=== PATIENT | female | born 1950 | race Caucasian/White ===

== ENCOUNTER → 2017-04-24 | Outpatient (CLI) | payer MEDICARE ==
[~2017-04-24] MED LIST: REGADENOSON 0.4 MG/5 ML SYRINGE IV ONE
--- NOTE | 2017-04-24 11:40 | NM ---
EXAMINATION TYPE: NM stress Lexiscan cardiolite DATE OF EXAM: 04/24/2017 COMPARISON: NONE HISTORY: Chest pain TECHNIQUE: After the intravenous administration of 10.15 mCi Tc 99m Sestamibi - Cardiolite resting S PECT images acquired 45 minutes post injection. The patient received 0.4mg Lexiscan, 27 mCi Tc 99m Sestamibi - Stress images obtained 30 minutes post injection FINDINGS: There is good uptake of radiotracer by the left ventricle without fixed defect. There is no convincing inducible ischemic change. Wall motion is calculated by the computer at 38%. IMPRESSION: 1. NO EVIDENCE OF INDUCIBLE ISCHEMIC CHANGE AT THIS TIME. 2. COMPUTER-GENERATED EJECTION FRACTION OF ONLY 38%.
--- NOTE | 2017-04-24 11:41 | ECHOF ---
Referral Reason:R07.9 chest pain MEASUREMENTS -------- HEIGHT: 165.1 cm WEIGHT: 63.5 kg BP: RVIDd: 2.4 cm (< 3.3) IVSd: 1.2 cm (0.6 - 1.1) LVIDd: 4.1 cm (3.9 - 5.3) LVPWd: 1.1 cm (0.6 - 1.1) IVSs: 1.5 cm LVIDs: 3.6 cm LVPWs: 1.2 cm LA Diam: 3.7 cm (2.7 - 3.8) LAESV Index (A-L): 30.99 ml/m Ao Diam: 3.1 cm (2.0 - 3.7) AV Cusp: 2.0 cm (1.5 - 2.6) LA Diam: 4.1 cm (2.7 - 3.8) MV EXCURSION: 18.395 mm (> 18.000) MV EF SLOPE: 72 mm/s (70 - 150) EPSS: 0.3 cm MV E Gabe: 0.74 m/s MV DecT: 232 ms MV A Gabe: 0.92 m/s MV E/A Ratio: 0.81 RAP: 5.00 mmHg RVSP: 31.31 mmHg FINDINGS -------- Sinus rhythm. This was a technically adequate study. There is borderline concentric left ventricular hypertrophy. Overall left ventricular systolic function is normal with, an EF between 55 - 60 %. The right ventricle is normal in size. The right atrial size is normal. There is mild aortic valve sclerosis. There is no evidence of aortic regurgitation. Mild mitral annular calcification present. Mild mitral regurgitation is present. Mild tricuspid regurgitation present. There is no evidence of pulmonary hypertension. The right ventricular systolic pressure, as measured by Doppler, is 31.31mmHg. There is no pulmonic regurgitation present. The aortic root size is normal. Echo free space may represent effusion or a pericardial fat pad. CONCLUSIONS -------- 1. There is borderline concentric left ventricular hypertrophy. 2. Overall left ventricular systolic function is normal with, an EF between 55 - 60 %. 3. There is mild aortic valve sclerosis. 4. Mild mitral annular calcification present. 5. Mild mitral regurgitation is present. 6. Mild tricuspid regurgitation present. 7. There is no evidence of pulmonary hypertension. 8. The right ventricular systolic pressure, as measured by Doppler, is 31.31mmHg. 9. Echo free space may represent effusion or a pericardial fat pad. DIAGNOSTIC RADIOLOGIST: Guillermina Burgess RDCS
--- NOTE | 2017-04-24 12:24 | P.STRESS ---
- Stress Test Note Stress Test Results/Findings: Exam Performed: NM stress lexiscan cardiolite Exam Date: 04/24/17 Reason for Exam: Chest pain, short of breath Height: 5 ft 5 in Weight: 104.326 kg Protocol: Dee Stage: N/A Duration of Exercise: N/A Resting Heart Rate: 67 Resting Blood Pressure: 137/83 Maximum Achieved Heart Rate: 93 Maximum Achieved Blood Pressure: 173/70 85% PMHR: 128 100% PMHR: 151 METS: N/A Technologist Comment: Stress Test Results/Findings: Patient was given Lexiscan injection what appeared to 15 seconds. EKG did not show any ischemic changes. Results of the nuclear study will follow.
== END | disposition home or self-care (01) ==
LOC: RADNMMAIN 09:01
PROVIDERS: ATTEND Family Medicine
DX: I08.1 Rheumatic disorders of both mitral and tricuspid valves (principal); Z88.2 Allergy status to sulfonamides; Z88.5 Allergy status to narcotic agent; Z88.6 Allergy status to analgesic agent
CPT/HCPCS: 93017; 93306; 78452; A9500; J2785

== ENCOUNTER → 2018-09-22 | Outpatient (CLI) | payer MEDICARE ==
--- NOTE | 2018-09-23 14:52 | MM ---
Reason for exam: screening (asymptomatic). History: Patient is postmenopausal. Physical Findings: A clinical breast exam by your physician is recommended on an annual basis and results should be correlated with mammographic findings. MG 3D Screening Mammo W/Cad Bilateral CC and MLO view(s) were taken. No prior studies available for comparison. Benign calcifications. Focal asymmetry upper outer right breast 13cm from nipple. ASSESSMENT: Incomplete: need additional imaging evaluation, BI-RAD 0 RECOMMENDATION: Special view mammogram of the right breast. If lesion persists on supplemental views, image directed ultrasound is recommended. [facility] will attempt to contact patient to return for supplemental views and ultrasound if indicated.
== END ==
LOC: RADMAMWWP 10:12
PROVIDERS: ATTEND Family Medicine
DX: Z12.31 Encounter for screening mammogram for malignant neoplasm of breast (principal); Z78.0 Asymptomatic menopausal state
CPT/HCPCS: 77063; 77067

== ENCOUNTER → 2018-10-14 | Outpatient (CLI) | payer MEDICARE ==
--- NOTE | 2018-10-18 18:30 | MM ---
Reason for exam: additional evaluation requested from abnormal screening. Last mammogram was performed 1 month ago. History: Patient is postmenopausal. Physical Findings: Nurse did not find any significant physical abnormalities on exam. MG 3D Work Up W/Cad RT Spot compression CC, spot compression MLO, and LM view(s) were taken of the right breast. Prior study comparison: September 22, 2018, bilateral MG 3d screening mammo w/cad. There are scattered fibroglandular densities. The right breast upper outer quadrant focal asymmetry appears as fibroglandular tissue on addition views such as 3D compression views. A 6 month follow up is recommended as no priors are available for comparison. These results were verbally communicated with the patient and result sheet given to the patient on 10/14/18. ASSESSMENT: Probably benign, BI-RAD 3 RECOMMENDATION: Follow-up diagnostic mammogram of the right breast in 6 months.
== END | disposition home or self-care (01) ==
LOC: RADMAMWWP 10:11
PROVIDERS: ATTEND Family Medicine
DX: R92.8 Other abnormal and inconclusive findings on diagnostic imaging of breast (principal)
CPT/HCPCS: 77065; G0279; 77061

== ENCOUNTER 2020-03-22 12:05 | Emergency (ER) | payer MEDICARE ==
[2020-03-22 12:15] VITALS: RESP 18
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
--- NOTE | 2020-03-22 13:28 | XR ---
EXAMINATION TYPE: XR chest 1V portable DATE OF EXAM: 03/22/2020 COMPARISON: NONE HISTORY: Altered mental status and weakness. TECHNIQUE: Single AP portable frontal view of the chest is obtained. FINDINGS: There is some chronic parenchymal change without focal air space opacity, pleural effusion , or pneumothorax seen. The cardiac silhouette size is within normal limits. The osseous structure s are intact. IMPRESSION: No acute process.
--- NOTE | 2020-03-22 14:00 | CT ---
EXAMINATION TYPE: CT brain wo con DATE OF EXAM: 03/22/2020 HISTORY: Mental health, anxiety, confusion. CT DLP: 1099.4 mGycm. Automated Exposure Control for Dose Reduction was Utilized. TECHNIQUE: CT scan of the head is performed without contrast. COMPARISON: CT brain June 30, 2013. FINDINGS: There is no acute intracranial hemorrhage or midline shift identified. There is diffuse v entricular and sulcal prominence consistent with diffuse age-related cerebral atrophy. Robertson-white mat ter differentiation fairly well maintained. The globes are intact and the visualized sinuses are selina ar. IMPRESSION: No acute intracranial hemorrhage or midline shift. There is mild diffuse age-related ce rebral atrophy now identified.
[2020-03-22 14:13] LABS: Basophils # (A) 0.1 k/uL (0-0.2); Basophils % (A) 1 %; Eosinophils # (A) 0.3 k/uL (0-0.7); Eosinophils % (A) 4 %; HCT 44.9 % (34.0-46.0); HGB 14.6 gm/dL (11.4-16.0); Lymphocytes # (A) 1.5 k/uL (1.0-4.8); Lymphocytes % (A) 21 %; MCHC 32.6 g/dL (31.0-37.0); Monocytes # (A) 0.4 k/uL (0-1.0); Monocytes % (A) 5 %; Neutrophils # (A) 4.9 k/uL (1.3-7.7); Neutrophils % (A) 67 %; Platelet Count 333 k/uL (150-450); RBC 4.89 m/uL (3.80-5.40); RDW 13.4 % (11.5-15.5); WBC 7.3 k/uL (3.8-10.6)
[2020-03-22 14:22] LABS: African American GFR (CKD) >90 (>60 ml/min/1.73 sqM); Anion Gap 8 mmol/L; Blood Urea Nitrogen 25 mg/dL (7-17); Calcium 9.7 mg/dL (8.4-10.2); Carbon Dioxide 28 mmol/L (22-30); Chloride 101 mmol/L (98-107); Glucose 111 mg/dL (74-99); Non-African American GFR(CKD) 86 (>60 ml/min/1.73 sqM); Sodium 137 mmol/L (137-145)
[2020-03-22 14:30] LABS: Amphetamine Screen,Urine Not Detected (NotDetected); Barbiturate Screen,Urine Not Detected (NotDetected); Benzodiazepines Screen,Urine Not Detected (NotDetected); Cocaine Screen,Urine Not Detected (NotDetected); Methadone Screen, Urine Not Detected (NotDetected); Opiate Screen,Urine Not Detected (NotDetected); Oxycodone Screen, Urine Not Detected (NotDetected); Phencyclidine Screen,Urine Not Detected (NotDetected); Tricyclic Antidepressant,Urine Not Detected (NotDetected); Urn Cannabinoid Scrn Detected (NotDetected)
[2020-03-22 14:58] LABS: Potassium 5.1 mmol/L (3.5-5.1)
[2020-03-22] MEDS ORDERED: CALCIUM CARBONATE 500 MG CHEWABLE PO PRN (18:35)
[2020-03-23] MEDS ORDERED: cloNIDine HCL 0.2 MG TAB PO STA (01:02)
[2020-03-23] MEDS ORDERED: IBUPROFEN 600 MG TAB PO STA (01:02)
[2020-03-23] MEDS ORDERED: LABETALOL 5 MG/ML VIAL MDV IVP STA (01:16)
[2020-03-23 07:05] VITALS: TEMP 98.2
[2020-03-23 09:05] VITALS: BP 139/82; PULSE 70
== END 2020-03-23 09:09 ==
LOC: EC 12:05
DX: R44.0 Auditory hallucinations (principal); R41.82 Altered mental status, unspecified; R79.89 Other specified abnormal findings of blood chemistry; E07.9 Disorder of thyroid, unspecified; Z79.890 Hormone replacement therapy; Z88.6 Allergy status to analgesic agent; Z88.5 Allergy status to narcotic agent
CPT/HCPCS: 36415; 70450; 71045; 80048; 80306; 82075; 84443; 85025; 93005; 96374; 99285

== ENCOUNTER → 2020-04-12 | Outpatient (CLI) | payer MEDICARE, OTHER ==
--- NOTE | 2020-04-12 16:08 | XR ---
Bilateral hands and bilateral wrists HISTORY: Pain 3 views of each hand, 4 views of each wrist are submitted. Joint space loss is present radiocarpal joints. There is extensive geode formation, lucencies within the carpal bones noted, there is erosion present at the margin of the scaphoid trapezium joint of the right wrist. Soft tissue swelling is present. Suspect some widening of the scapholunate distance jax aterally. Small ossific densities are present at the level of the distal ulna of the left wrist. Join t space loss is present at the third metacarpophalangeal joint of the left hand, interphalangeal join ts. Bone mineralization is maintained. A triangle fibrocartilage calcification noted. 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
== END | disposition home or self-care (01) ==
LOC: RADXRMAIN 14:55
PROVIDERS: ATTEND Family Medicine
DX: M79.641 Pain in right hand (principal); M79.642 Pain in left hand; M25.539 Pain in unspecified wrist

== ENCOUNTER 2020-04-17 12:47 | Inpatient (IN) | payer MEDICARE ==
--- NOTE | 2020-04-17 13:45 | ED ---
General Adult HPI - General Chief complaint: Psychiatric Symptoms Stated complaint: Psych Time Seen by Provider: 04/17/20 12:49 Source: patient, police, EMS, RN notes reviewed, old records reviewed Mode of arrival: EMS Limitations: physical limitation - History of Present Illness Initial comments: 70 yo female presenting for "ordered psychiatric evaluation. Patient has been petitioned and was brought in in police custody. She has no complaints. She is tearful on exam stating that she does not want to be way from her dogs. She denies suicidal or homicidal ideation. At the time of initial evaluation the petitioned is not available and is being faxed over from the court system. - Related Data Home Medications Medication Instructions Recorded Confirmed Levothyroxine Sodium [Synthroid] 100 mcg PO DAILY 03/22/20 04/17/20 DULoxetine HCL [Cymbalta] 60 mg PO BID 04/17/20 04/17/20 Melatonin 5 mg PO HS 04/17/20 04/17/20 risperiDONE [RisperDAL] 2 mg PO DAILY 04/17/20 04/17/20 Allergies Allergy/AdvReac Type Severity Reaction Status Date / Time aspirin AdvReac Nausea & Verified 04/17/20 14:09 Vomiting codeine AdvReac Vomiting Verified 04/17/20 14:09 Review of Systems ROS Statement: Those systems with pertinent positive or pertinent negative responses have been documented in the HPI. ROS Other: All systems not noted in ROS Statement are negative. Past Medical History Past Medical History: COPD, Thyroid Disorder Additional Past Medical History / Comment(s): pt poor historian History of Any Multi-Drug Resistant Organisms: None Reported Additional Past Surgical History / Comment(s): thyroid, carpal tunnel Past Psychological History: Unable to Obtain Smoking Status: Never smoker Past Alcohol Use History: None Reported Past Drug Use History: None Reported General Exam Limitations: physical limitation General appearance: alert, anxious Head exam: Present: atraumatic, normocephalic Eye exam: Present: normal appearance, PERRL ENT exam: Present: normal exam Neck exam: Present: normal inspection Respiratory exam: Present: normal lung sounds bilaterally. Absent: respiratory distress, wheezes Cardiovascular Exam: Present: regular rate, normal rhythm GI/Abdominal exam: Present: soft. Absent: distended, tenderness Extremities exam: Present: normal inspection, full ROM Neurological exam: Present: alert. Absent: motor sensory deficit Psychiatric exam: Present: depressed, anxious. Absent: suicidal ideation Skin exam: Present: warm, dry, intact Course Vital Signs 04/17/20 04/17/20 13:04 14:00 Temperature 98.0 F Pulse Rate 79 67 Respiratory 18 16 Rate Blood Pressure 179/110 166/99 O2 Sat by Pulse 98 99 Oximetry - Reevaluation(s) Reevaluation #1: 04/17/20 13:45 Patient medically cleared and EPS will evaluate. Medical Decision Making - Medical Decision Making 70-year-old female with Court ordered psychiatric evaluation. Patient is paranoid, unable to understand her need for treatment, unable to handle activities of daily living. She has been evaluated by EPS and will require inpatient psychiatric evaluation and treatment. I did complete a clinical certification on this patient. She will be admitted to this institution. - Lab Data Lab Results 04/17/20 Range/Units 13:54 Urine Opiates Screen Not Detected (NotDetected) Ur Oxycodone Screen Not Detected (NotDetected) Urine Methadone Screen Not Detected (NotDetected) Ur Propoxyphene Screen Not Detected (NotDetected) Ur Barbiturates Screen Not Detected (NotDetected) U Tricyclic Antidepress Not Detected (NotDetected) Ur Phencyclidine Scrn Not Detected (NotDetected) Ur Amphetamines Screen Not Detected (NotDetected) U Methamphetamines Scrn Not Detected (NotDetected) U Benzodiazepines Scrn Not Detected (NotDetected) Urine Cocaine Screen Not Detected (NotDetected) U Marijuana (THC) Screen Detected H (NotDetected) Disposition Clinical Impression: Psychosis, Acute psychosis Dis[facility] Condition: Stable Is patient prescribed a controlled substance at d/c from ED?: No Referrals: Rajat Warner MD [Primary Care Provider] - 1-2 days Decision to Admit Reason: Admit from EC Decision Date: 04/17/20 Decision Time: 15:16
[2020-04-17 14:40] LABS: Amphetamine Screen,Urine Not Detected (NotDetected); Barbiturate Screen,Urine Not Detected (NotDetected); Benzodiazepines Screen,Urine Not Detected (NotDetected); Cocaine Screen,Urine Not Detected (NotDetected); Methadone Screen, Urine Not Detected (NotDetected); Opiate Screen,Urine Not Detected (NotDetected); Oxycodone Screen, Urine Not Detected (NotDetected); Phencyclidine Screen,Urine Not Detected (NotDetected); Tricyclic Antidepressant,Urine Not Detected (NotDetected); Urn Cannabinoid Scrn Detected (NotDetected)
[2020-04-17] MEDS ORDERED: MAGNESIUM HYDROXIDE 2,400 MG/10 ML CUP PO PRN (16:06)
[2020-04-17] MEDS ORDERED: ZIPRASIDONE 20 MG VIAL IM PRN (16:06)
[2020-04-17] MEDS: ACETAMINOPHEN TAB 325 MG TAB PO PRN (18:58)
[2020-04-17] MEDS: risperiDONE 1 MG TAB PO SCH (20:52)
--- NOTE | 2020-04-17 21:49 | P.CONS ---
History of Present Illness - Reason for Consult Consult date: 04/17/20 - History of Present Illness Patient is a 70-year-old female with a PMH of hypothyroidism who was brought into the emergency room and please custody due to a court order for psychiatric evaluation. The patient was thereby admitted to the mental health unit where she was seen and evaluated earlier today. The patient was tearful during the examination and states that she feels she is here because she was yelling at someone on the phone and that no one is able to understand her. She was also very concerned about the well-being of her dogs who are currently being cared for by animal protection. She otherwise denied any active complaints. Denied chest pain, shortness of breath, nausea, vomiting or diaphoresis. Denied cough, fever, chills, abdominal pain, or dizziness. Review of Systems Pertinent positives and negatives as discussed in HPI, a complete review of systems was performed and all other systems are negative. Past Medical History Past Medical History: COPD, Thyroid Disorder Additional Past Medical History / Comment(s): pt poor historian History of Any Multi-Drug Resistant Organisms: None Reported Additional Past Surgical History / Comment(s): thyroid, carpal tunnel Past Psychological History: Unable to Obtain Smoking Status: Never smoker Past Alcohol Use History: None Reported Past Drug Use History: None Reported Medications and Allergies Home Medications Medication Instructions Recorded Confirmed Type Levothyroxine Sodium [Synthroid] 100 mcg PO DAILY 03/22/20 04/17/20 History DULoxetine HCL [Cymbalta] 60 mg PO BID 04/17/20 04/17/20 History Melatonin 5 mg PO HS 04/17/20 04/17/20 History risperiDONE [RisperDAL] 2 mg PO DAILY 04/17/20 04/17/20 History Allergies Allergy/AdvReac Type Severity Reaction Status Date / Time aspirin AdvReac Nausea & Verified 04/17/20 14:09 Vomiting codeine AdvReac Vomiting Verified 04/17/20 14:09 Physical Exam Vitals: Vital Signs Temp Pulse Pulse Resp BP BP Pulse Ox 04/17/20 16:15 97.8 F 72 18 177/115 99 04/17/20 15:49 178/114 04/17/20 14:00 67 16 166/99 99 04/17/20 13:04 98.0 F 79 18 179/110 98 Intake and Output 07/04/17/20 04/17/20 06:59 14:59 22:59 Other: Weight 95.254 kg 97.8 kg General: non toxic, no distress, appears at stated age, obese Derm: no unusual rashes/lesions no unusual ecchymoses, warm, dry Head: atraumatic, normocephalic, symmetric Eyes: EOMI, no lid lag, anicteric sclera, pupils equal round reactive to light ENT: Nose and ears atraumatic, no thrush, no pharyngeal erythema Neck: No thyromegaly, no cervical lymphadenopathy, trachea midline, supple Mouth: no lip lesion, mucus membranes moist Cardiovascular: S1S2 reg, no murmur, positive posterior tibial pulse bilateral, no edema, capillary refill less than 2 seconds Lungs: CTA bilateral, no rhonchi, no rales , no accessory muscle use Abdominal: soft, nontender to palpation, no guarding, no appreciable organomegaly, normal bowel sounds Ext: no gross muscle atrophy, muscle strength 5 out of 5 in all 4 extremities grossly, no contractures, Neuro: CN II-XI grossly intact, light touch intact all 4 extremities, finger to nose within normal limits, Psych: Alert, oriented, appropriate affect Results Labs: Abnormal Lab Results - Last 24 Hours (Table) 04/17/20 Range/Units 13:54 U Marijuana (THC) Screen Detected H (NotDetected) Assessment and Plan Plan: Hypothyroidism -C/w home levothyroxine dose Psychosis -As per psychiatry Thank you for allowing us to participate in the care of this patient. We will follow peripherally. Do not hesitate to contact us with questions. Someone can be reached from the [facility] hospitalist group at all hours of the day at [phone].
[2020-04-18] MEDS: ACETAMINOPHEN TAB 325 MG TAB PO PRN ×3 (03:16→20:23)
[2020-04-18] MEDS: LEVOTHYROXINE 100 MCG TAB PO SCH (06:30)
[2020-04-18 08:59] LABS: Basophils # (A) 0.1 k/uL (0-0.2); Basophils % (A) 1 %; Eosinophils # (A) 0.2 k/uL (0-0.7); Eosinophils % (A) 4 %; HGB 13.4 gm/dL (11.4-16.0); Lymphocytes # (A) 1.6 k/uL (1.0-4.8); Lymphocytes % (A) 30 %; MCH 30.4 pg (25.0-35.0); Mean Platelet Volume 7.6; Monocytes # (A) 0.3 k/uL (0-1.0); Monocytes % (A) 6 %; Neutrophils # (A) 3.2 k/uL (1.3-7.7); Neutrophils % (A) 59 %; Platelet Count 287 k/uL (150-450); RBC 4.42 m/uL (3.80-5.40); RDW 13.5 % (11.5-15.5); WBC 5.4 k/uL (3.8-10.6)
[2020-04-18] MEDS ORDERED: DULoxetine HCL 30 MG CAPSULE.DR PO SCH (09:00)
[2020-04-18 09:12] LABS: ALT 15 U/L (4-34); AST 22 U/L (14-36); African American GFR (CKD) >90 (>60 ml/min/1.73 sqM); Alkaline Phosphatase 67 U/L (38-126); Anion Gap 7 mmol/L; Blood Urea Nitrogen 20 mg/dL (7-17); Calcium 9.6 mg/dL (8.4-10.2); Carbon Dioxide 28 mmol/L (22-30); Chloride 105 mmol/L (98-107); Cholesterol 229 mg/dL (<200); Glucose 98 mg/dL (74-99); HDL Cholesterol 62 mg/dL (40-60); LDL Cholesterol,Calculated 143 mg/dL (0-99); Non-African American GFR(CKD) 80 (>60 ml/min/1.73 sqM); Potassium 4.7 mmol/L (3.5-5.1); Sodium 140 mmol/L (137-145); Total Bilirubin 0.5 mg/dL (0.2-1.3); Total Protein 6.7 g/dL (6.3-8.2); Triglycerides 119 mg/dL (<150)
--- NOTE | 2020-04-18 12:19 | P.HP ---
Psychiatric H&P - . H&P Date: 04/18/20 History & Physical: Allergies Allergy/AdvReac Type Severity Reaction Status Date / Time aspirin AdvReac Nausea & Verified 04/17/20 14:09 Vomiting codeine AdvReac Vomiting Verified 04/17/20 14:09 Vital Signs Temp 98.3 F 04/18/20 03:33 Pulse 87 04/18/20 03:33 Resp 18 04/18/20 03:33 BP 152/79 04/18/20 03:33 Pulse Ox 99 04/17/20 16:15 Intake & Output 04/17/20 04/18/20 04/18/20 18:59 06:59 18:59 Weight 97.8 kg Laboratory Last Values WBC 5.4 k/uL (3.8-10.6) 04/18/20 07:51 RBC 4.42 m/uL (3.80-5.40) 04/18/20 07:51 Hgb 13.4 gm/dL (11.4-16.0) 04/18/20 07:51 Hct 42.0 % (34.0-46.0) 04/18/20 07:51 MCV 95.0 fL (80.0-100.0) 04/18/20 07:51 MCH 30.4 pg (25.0-35.0) 04/18/20 07:51 MCHC 32.0 g/dL (31.0-37.0) 04/18/20 07:51 RDW 13.5 % (11.5-15.5) 04/18/20 07:51 Plt Count 287 k/uL (150-450) 04/18/20 07:51 Neutrophils % 59 % 04/18/20 07:51 Lymphocytes % 30 % 04/18/20 07:51 Monocytes % 6 % 04/18/20 07:51 Eosinophils % 4 % 04/18/20 07:51 Basophils % 1 % 04/18/20 07:51 Neutrophils # 3.2 k/uL (1.3-7.7) 04/18/20 07:51 Lymphocytes # 1.6 k/uL (1.0-4.8) 04/18/20 07:51 Monocytes # 0.3 k/uL (0-1.0) 04/18/20 07:51 Eosinophils # 0.2 k/uL (0-0.7) 04/18/20 07:51 Basophils # 0.1 k/uL (0-0.2) 04/18/20 07:51 Sodium 140 mmol/L (137-145) 04/18/20 07:51 Potassium 4.7 mmol/L (3.5-5.1) 04/18/20 07:51 Chloride 105 mmol/L (98-107) 04/18/20 07:51 Carbon Dioxide 28 mmol/L (22-30) 04/18/20 07:51 Anion Gap 7 mmol/L 04/18/20 07:51 BUN 20 mg/dL (7-17) H 04/18/20 07:51 Creatinine 0.75 mg/dL (0.52-1.04) 04/18/20 07:51 Est GFR (CKD-EPI)AfAm >90 (>60 ml/min/1.73 sqM) 04/18/20 07:51 Est GFR (CKD-EPI)NonAf 80 (>60 ml/min/1.73 sqM) 04/18/20 07:51 Glucose 98 mg/dL (74-99) 04/18/20 07:51 Calcium 9.6 mg/dL (8.4-10.2) 04/18/20 07:51 Total Bilirubin 0.5 mg/dL (0.2-1.3) 04/18/20 07:51 AST 22 U/L (14-36) 04/18/20 07:51 ALT 15 U/L (4-34) 04/18/20 07:51 Alkaline Phosphatase 67 U/L (38-126) 04/18/20 07:51 Total Protein 6.7 g/dL (6.3-8.2) 04/18/20 07:51 Albumin 4.0 g/dL (3.5-5.0) 04/18/20 07:51 Triglycerides 119 mg/dL (<150) 04/18/20 07:51 Cholesterol 229 mg/dL (<200) H 04/18/20 07:51 LDL Cholesterol, Calc 143 mg/dL (0-99) H 04/18/20 07:51 HDL Cholesterol 62 mg/dL (40-60) H 04/18/20 07:51 TSH 24.200 mIU/L (0.465-4.680) H 04/18/20 07:51 Urine Opiates Screen Not Detected (NotDetected) 04/17/20 13:54 Ur Oxycodone Screen Not Detected (NotDetected) 04/17/20 13:54 Urine Methadone Screen Not Detected (NotDetected) 04/17/20 13:54 Ur Propoxyphene Screen Not Detected (NotDetected) 04/17/20 13:54 Ur Barbiturates Screen Not Detected (NotDetected) 04/17/20 13:54 U Tricyclic Antidepress Not Detected (NotDetected) 04/17/20 13:54 Ur Phencyclidine Scrn Not Detected (NotDetected) 04/17/20 13:54 Ur Amphetamines Screen Not Detected (NotDetected) 04/17/20 13:54 U Methamphetamines Scrn Not Detected (NotDetected) 04/17/20 13:54 U Benzodiazepines Scrn Not Detected (NotDetected) 04/17/20 13:54 Urine Cocaine Screen Not Detected (NotDetected) 04/17/20 13:54 U Marijuana (THC) Screen Detected (NotDetected) H 04/17/20 13:54 04/18/20 12:10 IDENTIFYING DATA: Patient is a 70-year-old female who currently lives alone in a house is and has 2 sons and 1 daughter. HPI: Patient presented to the hospital on a pickup order by the police in custody for a psychiatric evaluation. Patient according to ER report was yelling at someone over the phone and appeared to be tearful during interview. Patient was also on a petition stating that she was acting bizarre and endorsing delusions. Patient had a urine drug screen which is positive for THC. Patient was admitted to the mental health unit and evaluated today by program writer and patient was directable however was tearful and visibly upset while speaking to program writer. She states that "I can't stop crying" and states that she feels that she is "garbage". She also endorsed some paranoia stating that she can't trust anybody. She feels that nobody is listening to her and that the "world feels like it's falling apart". She was illogical at times and was a poor historian. She spoke repeatedly about her dogs and how she misses him and continues to cry. She was rambling and had racing thoughts and was illogical. She spoke about passive suicidal thoughts as in "putting me in my dogs down or in hospice" however did not endorse any specific suicidal plans or intent. She denied any homicidal ideations intent or plan. She states that her sleep is "okay and takes melatonin. She states that she has been off her medications for 1 week as she was hospitalized in [place] over a week ago. At this time patient denies any auditory or visual hallucinations. Patient admits to using marijuana daily for "medical reasons" and denies any other recreational drug use. She denies any cigarette use. PAST PSYCHIATRIC HISTORY: Patient states that she has some form of mental illness. Patient was previously on Risperdal and Cymbalta. Veins and she was recently hospitalized at [facility] in [place] one week ago. Patient denies any psychiatric outpatient follow-up. She states that she once attempted suicide by not taking her thyroid medications. PMH: COPD and hypothyroidism ALLERGIES: as per EMR CHEMICAL DEPENDENCY HISTORY: as per HPI FAMILY PSYCHIATRIC/SUBSTANCE USE HISTORY: She states that her mother had some form of mental illness. SOCIAL HISTORY: Patient was born and [place] in [facility] [place]. She states that she is currently living alone in a house is and has 2 sons and 1 daughter. 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 She denied any legal problems at this time. MENTAL STATUS EXAM: General Appearance: Patient appears to be stated age is alert, difficult to redirect and tearful/upset. Patient appears to have poor hygiene and grooming. Behavior: Patient is seated without any agitated behavior. Tearful and upset. Speech: Patient's speech is fluent and nonpressured. Mood/Affect: Patient reports their mood is depressed, affect is congruent and tearful Suicidality/Homicidality: Patient denies having any homicidal ideation intent or plan. Patient admitted to passive suicidal thoughts however no intent or plan. Perceptions: Patient denies any visual hallucinations and denies any auditory hallucinations Though content/process: Patient has extreme forms of guilt, is illogical and disorganized at times. Memory and concentration: AOX3, grossly intact for the purposes of this session. Can spell "WORLD" backwards Judgment and insight: poor STRENGTHS/WEAKNESSES: strength is that patient is resilient. Weakness is that patient has poor judgment and is impulsive INTELLECT: average IMPRESSIONS: Schizoaffective disorder, depressive type Cannabis use disorder PLAN: -Patient is admitted under voluntary status to MHU for stabilization of psychiatric symptoms and safety. Patient signed adult voluntary form and medication consent and is placed in patient's chart. -Medications : Will start patient on Risperdal 1 mg twice a day for psychosis/mood stabilization, increase Cymbalta to 30 mg twice a day for mood/anxiety. -Geodon PRN for agitation/aggression -Patient was informed of the risks, benefits and side effects of the medication and patient verbally consented to taking the medications. Patient signed med consent form and was placed in chart. -Internal Medicine consult to perform medical evaluation and physical. patient has an elevated TSH at 24, awaiting free T4. Patient had a computed tomography scan of her head on 03/22/2020 which showed no acute changes and mild diffuse age-related cerebral atrophy. -NRT -not needed as patient does not smoke -SW on board for discharge planning. Encourage patient to participate in groups to work on coping skills.
[2020-04-18] MEDS: risperiDONE 1 MG TAB PO SCH ×2 (12:20→20:23)
[2020-04-18] MEDS: MAG HYDROX/AL HYDROX/SIMETH 30 ML CUP PO PRN (14:05)
[2020-04-18] MEDS: DULoxetine HCL 30 MG CAPSULE.DR PO SCH (20:23)
[2020-04-18] MEDS: MELATONIN 5 MG TABLET PO PRN (20:25)
[2020-04-18 21:30] LABS: Hemoglobin A1C 5.9 % (4.0-6.0)
[2020-04-19] MEDS: LEVOTHYROXINE 100 MCG TAB PO SCH (05:19)
[2020-04-19] MEDS: ACETAMINOPHEN TAB 325 MG TAB PO PRN (05:20)
[2020-04-19] MEDS: DULoxetine HCL 30 MG CAPSULE.DR PO SCH (08:52)
[2020-04-19] MEDS: risperiDONE 1 MG TAB PO SCH ×2 (08:53→19:36)
[2020-04-19] MEDS: IBUPROFEN 600 MG TAB PO PRN ×2 (11:27→19:52)
--- NOTE | 2020-04-19 11:29 | P.PN ---
Progress Note - Text Progress Note Date: 04/19/20 Interval History: Patient was seen wandering the hallways and was directable and agreeable to sp shellie with account underwriter in the office. Patient appeared to be mildly less tearful today and states that she has been having a gradual improvement in her mood and anxiety. She states that she is in severe pain in her legs and hip and was requesting to have a walker. She states that she feels the medications have been helping her. Patient states that she would be agreeable to be transition onto Invega Sustenna to insure compliance with her medications. She states that her racing thoughts and been improving. She claims that she has been going to some groups and is finding them helpful. She states that she was able to sleep well last night. Patient continues to ramble at times and is tangential/circumstantial. At this time patient denies any suicidal or homical ideations, intent or plan. Patient denies any auditory, visual hallucinations and denies any paranoia or delusions. Patient denies any side effects from the medications and has been compliant with meds. Mental Status Exam: General Appearance: Patient appears to be stated age is alert, less tearful today and attempts to cooperate. Patient appears to have poor hygiene and grooming. Behavior: Patient is seated without any agitated behavior. Less tearful today. Speech: Patient's speech is fluent and nonpressured. Mood/Affect: Patient reports their mood is improving mildly, affect is congruent Suicidality/Homicidality: Patient denies having any homicidal ideation intent or plan. Denies any suicidal thoughts and no intent or plan. Perceptions: Patient denies any visual hallucinations and denies any auditory hallucinations Though content/process: Patient is endorsing less guilt. Continues to be tangential/circumstantial. Perseverates on pain and her medications. Medically preoccupied. Memory and concentration: AOX3, grossly intact for the purposes of this session Judgment and insight: poor, improving mildly Assessment Schizoaffective disorder, depressive type Cannabis use disorder Plan: -Patient continues to meet criteria for inpatient psychiatric admission for symptom stabilization and safety. Patient has signed adult voluntary form and medication consent and was placed in patient's chart. -Medications: Continue with Risperdal twice a day for psychosis/mood stabilization, increased Cymbalta to 60 mg daily +30 mg daily at bedtime for mood/anxiety/pain. Patient is agreeable to be transition onto Invega Sustenna to insure compliance. We'll likely give loading dose tomorrow morning. -When necessary Ativan and Geodon for agitation/aggression. -patient has an elevated TSH at 24, continue with thyroid replacement. Patient had a computed tomography scan of her head on 03/22/2020 which showed no acute changes and mild diffuse age-related cerebral atrophy. -NRT -not needed as patient does not smoke. -SW on board for discharge planning. Encouraged the patient to participate in milieu. Likely discharge in 1-2 days.
[2020-04-19] MEDS: MELATONIN 5 MG TABLET PO PRN (19:36)
[2020-04-19] MEDS ORDERED: DULoxetine HCL 30 MG CAPSULE.DR PO SCH (21:00)
[2020-04-20] MEDS: LEVOTHYROXINE 100 MCG TAB PO SCH (06:11)
[2020-04-20] MEDS: IBUPROFEN 600 MG TAB PO PRN ×2 (07:48→18:56)
[2020-04-20] MEDS: risperiDONE 1 MG TAB PO SCH (07:49)
[2020-04-20] MEDS ORDERED: DULoxetine HCL 60 MG CAPSULE.DR PO SCH (09:00)
[2020-04-20] MEDS ORDERED: PALIPERIDONE IM 234 MG/1.5 ML SYG IM STA (09:22)
--- NOTE | 2020-04-20 09:27 | P.PN ---
Progress Note - Text Progress Note Date: 04/20/20 Interval History: Patient was seen wandering the hallways or taking her medications as morning and was directable and agreeable to speak with business writer in the office. Patient appeared to be less tearful today and appeared to be more cooperative with business writer. She states that her mood is gradually improving along with anxiety. She claims that she has been using the walker has been helping her and has taken the ibuprofen to help with her pain. She states that she feels medication has been helping her with her mood. She spoke about "bats in my house" and claimed that she was scared to go home at this time. Patient continues to be agreeable to start Invega Sustenna loading dose today. She states that her racing thoughts and been improving. She claims that she has been going to some groups and is finding them helpful. She states that she was able to sleep well last night. Patient continues to ramble at times and is tangential/circumstantial. At this time patient denies any suicidal or homical ideations, intent or plan. Patient denies any auditory, visual hallucinations and denies any paranoia or delusions. Patient denies any side effects from the medications and has been compliant with meds. Mental Status Exam: General Appearance: Patient appears to be stated age is alert, less tearful today, cooperate. Patient appears to have improving hygiene and grooming. Behavior: Patient is seated without any agitated behavior. Attempts to cooperate today. Speech: Patient's speech is fluent and nonpressured. Mood/Affect: Patient reports their mood is improving mildly, affect is congruent Suicidality/Homicidality: Patient denies having any homicidal ideation intent or plan. Denies any suicidal thoughts and no intent or plan. Perceptions: Patient denies any visual hallucinations and denies any auditory hallucinations Though content/process: Continues to be tangential/circumstantial. Logical. Memory and concentration: AOX3, grossly intact for the purposes of this session Judgment and insight: poor, improving mildly Assessment Schizoaffective disorder, depressive type Cannabis use disorder Plan: -Patient continues to meet criteria for inpatient psychiatric admission for symptom stabilization and safety. Patient has signed adult voluntary form and medication consent and was placed in patient's chart. -Medications: We'll give loading dose of Invega Sustenna today 234 mg IM. Will decrease and titrated off Risperdal throughout the weekend. increased Cymbalta to 60 mg BID for mood/anxiety/pain. -When necessary Ativan and Geodon for agitation/aggression. -patient has an elevated TSH at 24, continue with thyroid replacement. Patient had a computed tomography scan of her head on 03/22/2020 which showed no acute changes and mild diffuse age-related cerebral atrophy. -NRT -not needed as patient does not smoke. -SW on board for discharge planning. Encouraged the patient to participate in milieu. Likely discharge on Thursday back home.
[2020-04-20] MEDS: MELATONIN 5 MG TABLET PO PRN (20:09)
[2020-04-20] MEDS: MAG HYDROX/AL HYDROX/SIMETH 30 ML CUP PO PRN (20:09)
[2020-04-20] MEDS: DULoxetine HCL 60 MG CAPSULE.DR PO SCH (20:09)
[2020-04-20] MEDS ORDERED: risperiDONE 1 MG TAB PO SCH (21:00)
[2020-04-21] MEDS: IBUPROFEN 600 MG TAB PO PRN ×2 (03:55→21:04)
[2020-04-21] MEDS: DULoxetine HCL 60 MG CAPSULE.DR PO SCH ×2 (08:57→21:04)
[2020-04-21] MEDS: LEVOTHYROXINE 100 MCG TAB PO SCH (08:57)
[2020-04-21] MEDS: BENZTROPINE MESYLATE 0.5 MG TAB PO SCH ×2 (12:44→21:04)
[2020-04-21] MEDS ORDERED: BENZOCAINE 20% HEMORRHOIDAL OINT 28GM RECTAL PRN (12:45)
--- NOTE | 2020-04-21 20:23 | PN ---
PROGRESS NOTE CHIEF COMPLAINT: Patient was admitted on [facility] for delusional thinking and bizarre behavior. INTERVAL HISTORY: The patient has been doing fair. She had a quiet evening last night. She slept fairly well. Today, she has been up. She comes out in the day area. She has been attending groups. She talks about feeling that her mood is improved, and that she is hopeful to be discharged early in the week. She made some vague references to unusual happenings in her home. It was difficult to follow some of what she was relating. She notes that she has had no problems with the start of the Invega Sustenna. She did have complaint that she is having trouble with her right hand. She says she suffers from problems with carpal tunnel and that when she walks, she can not hold her hand in a stiff position and it brings on pain. She also notes that she has had some muscle spasms in her legs. MENTAL STATUS: Patient sat with a little restlessness. She gave fairly good eye contact. She answered questions with direct responses. Her thoughts were clear. Her affect was a little constricted though not significantly so. Her mood was somewhat reserved, though she did not appear to be significantly down or depressed. She did not appear to be distressed. She did make comments that suggested continued thought disorder with delusions. She voiced no thoughts of harm to self or others. Cognition was clear. ASSESSMENT: I will continue the current diagnosis and treatment plan. Some of the physical complaints the patient is having in regard to carpal tunnel as well as muscle spasms may relate to some EPS symptoms and as such I will discontinue her Risperdal 0.5 mg and start Cogentin 0.5 mg twice a day. We will continue Cymbalta 60 mg twice a day. I reviewed medication issues with the patient including indications, potential side effects and metabolic concerns as it relates to her Invega. We will focus on stabilization and discharge planning. MMODL / IJN: [id number] /
[2020-04-21] MEDS ORDERED: risperiDONE 0.5 MG TAB PO SCH (21:00)
[2020-04-21] MEDS: MELATONIN 5 MG TABLET PO PRN (21:04)
[2020-04-22] MEDS: LEVOTHYROXINE 100 MCG TAB PO SCH (06:07)
[2020-04-22] MEDS: IBUPROFEN 600 MG TAB PO PRN ×2 (06:10→20:07)
[2020-04-22] MEDS: DULoxetine HCL 60 MG CAPSULE.DR PO SCH ×2 (08:00→20:08)
[2020-04-22] MEDS: BENZTROPINE MESYLATE 0.5 MG TAB PO SCH ×2 (08:00→20:08)
--- NOTE | 2020-04-22 12:42 | PN ---
PROGRESS NOTE DATE OF SERVICE: 04/22/2020 CHIEF COMPLAINT: [facility]. INTERVAL HISTORY: Patient has been doing fairly well. She had a quiet evening last night. She comes out in the day area. She wonders about. She will interact with others. She has been attending groups. She slept well last night. Today, she has been up. She comes out in the day area. She continues to attend groups. She says today that her mood is continuing to improve. She notes that the muscle tension she was having in her legs has dissipated. She notes the pain in her right forearm seems to be less which she related to some carpal tunnel problems. She says that overall she feels less tense in her body. She says that she has a better outlook and she is looking forward to discharge. She says she has a plan that if things do not go well for her that she will be able to get in touch with her physician and presents things in a reasonable way to get help. She acknowledges that in the past, sometimes she would yell and get quite distressed, which was not helpful for her or anyone else. She tolerates psychotropic medications. MENTAL STATUS: Patient was a little restless. She gave fairly good eye contact. She answered questions appropriately. Her thoughts were clear and coherent. She was spontaneous and interactive. Her affect was in a reasonable range. She smiled. She was friendly. Her mood was good. She did not appear to be distressed at all. There was no indication of thought disorder. Cognition was clear. She voiced no thoughts of harm to self or others. ASSESSMENT: I will continue the current diagnosis and treatment plan. I will continue psychotropic medications the same. Patient has been making good progress. The plan is for possible discharge tomorrow. We will coordinate with outpatient resources for followup care. MMODL / IJN: [id number] /
[2020-04-22] MEDS: MELATONIN 5 MG TABLET PO PRN (20:07)
[2020-04-23] MEDS: LEVOTHYROXINE 100 MCG TAB PO SCH (05:52)
[2020-04-23 06:30] VITALS: BP 137/78; PULSE 76; RESP 15
[2020-04-23] MEDS: DULoxetine HCL 60 MG CAPSULE.DR PO SCH (08:33)
[2020-04-23] MEDS: BENZTROPINE MESYLATE 0.5 MG TAB PO SCH (08:33)
[2020-04-23] MEDS: IBUPROFEN 600 MG TAB PO PRN (08:34)
--- NOTE | 2020-04-23 09:16 | P.DS ---
Providers Date of admission: 04/17/20 15:40 Expected date of discharge: 04/23/20 Attending physician: Lei Mcgrath MD Consults: 04/17/20 16:06 Consult Physician Routine Consulting Provider: Jimi Douglas Consult Reason/Comments: H&P and medical and hypertension Do you want consulting provider notified?: Yes Primary care physician: Rajat Warner - Discharge Diagnosis(es) (1) Schizoaffective disorder, depressive type Current Visit: Yes Status: Acute Priority: High (2) Cannabis use disorder, mild, abuse Current Visit: Yes Status: Acute Priority: Medium Hospital Course: Admission HPI: Patient is a 70-year-old female who currently lives alone in a house is and has 2 sons and 1 daughter. Patient presented to the hospital on a pickup order by the police in custody for a psychiatric evaluation. Patient according to ER report was yelling at someone over the phone and appeared to be tearful during interview. Patient was also on a petition stating that she was acting bizarre and endorsing delusions. Patient had a urine drug screen which is positive for THC. Patient was admitted to the mental health unit and evaluated today by policy writer sales and patient was directable however was tearful and visibly upset while speaking to policy writer sales. She states that "I can't stop crying" and states that she feels that she is "garbage". She also endorsed some paranoia stating that she can't trust anybody. She feels that nobody is listening to her and that the "world feels like it's falling apart". She was illogical at times and was a poor historian. She spoke repeatedly about her dogs and how she misses him and continues to cry. She was rambling and had racing thoughts and was illogical. She spoke about passive suicidal thoughts as in "putting me in my dogs down or in hospice" however did not endorse any specific suicidal plans or intent. She denied any homicidal ideations intent or plan. She states that her sleep is "okay and takes melatonin. She states that she has been off her medications for 1 week as she was hospitalized in [place] over a week ago. At this time patient denies any auditory or visual hallucinations. Patient admits to using marijuana daily for "medical reasons" and denies any other recreational drug use. She denies any cigarette use. Hospital course: Upon admission to the unit patient was initially labile, bizzare, depressed and suicidal. Patient was however directable and agreeable to commence treatment. Patient got along well with other patients on the unit and followed unit protocol. Patient was compliant with the medications and denied any side effects throughout hospital course. Patient was started on Risperdal and titrated up to a dose of 1 mg twice a day for mood stabilization/psychosis then titrated off this medication as patient was transitioned onto Invega Sustenna. Patient was given a loading dose of 234mg Invega Sustenna on 04/20/2020 and will be due for her next injection of 156 mg on 04/27/2020 and her maintenance dose of 78 mg on 05/18/2020 monthly thereafter. Patient was also restarted on her dose of Cymbalta 60 mg twice a day for mood/anxiety/pain. Melatonin 5 mg daily at bedtime for sleep and Cogentin was added for EPS prophylaxis. Patient spoke of her stressors and engaged in therapy both group and individual. Patient was also seen by medical team for history and physical exam. Patient did have an elevated TSH on admission and was restarted on thyroid replacement therapy, she also had a computed tomography scan of her head on a previous ER visit on 03/22/2020 which showed no acute changes and mild diffuse age-related cerebral atrophy. Throughout the course of the hospitalization patient gradually improved with regards to mood lability, delusions/psychosis, sleep and became future oriented with improved insight and judgment. On the day of discharge patient denied any suicidal or homicidal ideations intent or plan denied any auditory or visual hallucinations. Patient endorsed wanting to live for her health and her future. The patient denied any access to guns or weapons. Patient denied any paranoia and did not endorse any delusions. Patient does have a significant history of substance abuse and was counseled on abstaining from all substances including alcohol and marijuana. Patient was offered however declined inpatient substance-abuse rehab. Patient was also counseled on the medications and need for regular compliance and was encouraged to follow-up with their outpatient appointment for mental health and also for primary care. Prior to discharge a family meeting will be arranged by social services designee to answer any questions and ensure safety upon discharge. Mental status exam: General Appearance: Patient appears to be overweight, stated age is alert, pleasant, and cooperative. Patient is in no acute distress and has fair hygiene and grooming Behavior: Patient is calmly seated without any agitated behavior. Cooperative. Speech: Patient's speech is fluent and nonpressured. Mood/Affect: Patient reports their mood is "much better", affect is congruent and euthymic. Suicidality/Homicidality: Patient denies having any suicidal or homicidal ideation intent or plan. Perceptions: Patient denies any auditory or visual hallucinations. Though content/process: There is no evidence of any delusional thought content and thought process is linear and goal-directed. more future oriented Memory and concentration: AOX3, grossly intact for the purposes of this session. Can spell "WORLD" backwards correctly. Judgment and insight: Improved with guarded prognosis Impression: Schizoaffective disorder, depressive type Cannabis use disorder Plan: -Continue with discharge today as patient has improved and stabilized psych iatrically and is not currently an imminent threat to herself and/or others. -Continue medications: Continue with Cymbalta 60 mg twice a day for mood/anxiety/pain, Cogentin 0.5 mg daily when necessary for muscle spasms and melatonin 5 mg daily at bedtime when necessary for sleep. Patient was given a loading dose of 234mg Invega Sustenna on 04/20/2020 and will be due for her next injection of 156 mg on 04/27/2020 and her maintenance dose of 78 mg on 05/18/2020 monthly thereafter. -Patient was counseled on the need for medication compliance and appropriate follow-up at mental health and also primary care for medical issues. Patient verbalized understanding and agreed. -Social work to arrange for and conduct family meeting to ensure safety upon discharge and answer any questions/concerns. Social work also to arrange for patients follow up appointments for psychiatric care along with follow up with primary care provider. -Patient counseled on abstaining from recreational drugs and marijuana and alcohol. Was informed/educated on the adverse effects on their physical and mental health. Patient verbally agreed and understood. Patient claims that she will be cutting back marijuana use on her own. -Patient was instructed to return to the hospital or seek immediate medical care if their psychiatric or medical symptoms do worsen or reoccur. Allergies Allergy/AdvReac Type Severity Reaction Status Date / Time aspirin AdvReac Nausea & Verified 04/17/20 14:09 Vomiting codeine AdvReac Vomiting Verified 04/17/20 14:09 Laboratory Results WBC 5.4 k/uL (3.8-10.6) 04/18/20 07:51 RBC 4.42 m/uL (3.80-5.40) 04/18/20 07:51 Hgb 13.4 gm/dL (11.4-16.0) 04/18/20 07:51 Hct 42.0 % (34.0-46.0) 04/18/20 07:51 MCV 95.0 fL (80.0-100.0) 04/18/20 07:51 MCH 30.4 pg (25.0-35.0) 04/18/20 07:51 MCHC 32.0 g/dL (31.0-37.0) 04/18/20 07:51 RDW 13.5 % (11.5-15.5) 04/18/20 07:51 Plt Count 287 k/uL (150-450) 04/18/20 07:51 Neutrophils % 59 % 04/18/20 07:51 Lymphocytes % 30 % 04/18/20 07:51 Monocytes % 6 % 04/18/20 07:51 Eosinophils % 4 % 04/18/20 07:51 Basophils % 1 % 04/18/20 07:51 Neutrophils # 3.2 k/uL (1.3-7.7) 04/18/20 07:51 Lymphocytes # 1.6 k/uL (1.0-4.8) 04/18/20 07:51 Monocytes # 0.3 k/uL (0-1.0) 04/18/20 07:51 Eosinophils # 0.2 k/uL (0-0.7) 04/18/20 07:51 Basophils # 0.1 k/uL (0-0.2) 04/18/20 07:51 Sodium 140 mmol/L (137-145) 04/18/20 07:51 Potassium 4.7 mmol/L (3.5-5.1) 04/18/20 07:51 Chloride 105 mmol/L (98-107) 04/18/20 07:51 Carbon Dioxide 28 mmol/L (22-30) 04/18/20 07:51 Anion Gap 7 mmol/L 04/18/20 07:51 BUN 20 mg/dL (7-17) H 04/18/20 07:51 Creatinine 0.75 mg/dL (0.52-1.04) 04/18/20 07:51 Est GFR (CKD-EPI)AfAm >90 (>60 ml/min/1.73 sqM) 04/18/20 07:51 Est GFR (CKD-EPI)NonAf 80 (>60 ml/min/1.73 sqM) 04/18/20 07:51 Glucose 98 mg/dL (74-99) 04/18/20 07:[address] Glu mg/dL 123 04/18/20 07:51 Hemoglobin A1c 5.9 % (4.0-6.0) 04/18/20 07:51 Calcium 9.6 mg/dL (8.4-10.2) 04/18/20 07:51 Total Bilirubin 0.5 mg/dL (0.2-1.3) 04/18/20 07:51 AST 22 U/L (14-36) 04/18/20 07:51 ALT 15 U/L (4-34) 04/18/20 07:51 Alkaline Phosphatase 67 U/L (38-126) 04/18/20 07:51 Total Protein 6.7 g/dL (6.3-8.2) 04/18/20 07:51 Albumin 4.0 g/dL (3.5-5.0) 04/18/20 07:51 Triglycerides 119 mg/dL (<150) 04/18/20 07:51 Cholesterol 229 mg/dL (<200) H 04/18/20 07:51 LDL Cholesterol, Calc 143 mg/dL (0-99) H 04/18/20 07:51 HDL Cholesterol 62 mg/dL (40-60) H 04/18/20 07:51 TSH 24.200 mIU/L (0.465-4.680) H 04/18/20 07:51 Urine Opiates Screen Not Detected (NotDetected) 04/17/20 13:54 Ur Oxycodone Screen Not Detected (NotDetected) 04/17/20 13:54 Urine Methadone Screen Not Detected (NotDetected) 04/17/20 13:54 Ur Propoxyphene Screen Not Detected (NotDetected) 04/17/20 13:54 Ur Barbiturates Screen Not Detected (NotDetected) 04/17/20 13:54 U Tricyclic Antidepress Not Detected (NotDetected) 04/17/20 13:54 Ur Phencyclidine Scrn Not Detected (NotDetected) 04/17/20 13:54 Ur Amphetamines Screen Not Detected (NotDetected) 04/17/20 13:54 U Methamphetamines Scrn Not Detected (NotDetected) 04/17/20 13:54 U Benzodiazepines Scrn Not Detected (NotDetected) 04/17/20 13:54 Urine Cocaine Screen Not Detected (NotDetected) 04/17/20 13:54 U Marijuana (THC) Screen Detected (NotDetected) H 04/17/20 13:54 Vital Signs Temp 98.4 F 04/23/20 06:28 Pulse 76 04/23/20 06:28 Resp 15 04/23/20 06:28 BP 137/78 04/23/20 06:28 Pulse Ox 97 04/23/20 06:28 Intake & Output 04/22/20 04/23/20 04/23/20 18:59 06:59 18:59 Weight 98.1 kg Patient Condition at Discharge: Stable Plan - Discharge Summary Discharge Rx Participant: No New Discharge Prescriptions: New Benztropine Mesylate [Cogentin] 0.5 mg PO DAILY PRN #30 tab PRN Reason: for muscle spasms DULoxetine HCL [Cymbalta] 60 mg PO BID 30 Days capsule. Paliperidone IM [Invega Sustenna] 156 mg IM ONCE #1 syr Melatonin 5 mg PO HS PRN 30 Days tablet PRN Reason: Sleep Ibuprofen [Motrin] 600 mg PO Q8H PRN 30 Days tab PRN Reason: Moderate To Severe Pain Acetaminophen Tab [Tylenol] 650 mg PO Q6HR PRN 30 Days tab PRN Reason: Pain/Discomfort Paliperidone Palmitate [Invega Sustenna] 78 mg IM ONCE #1 syringe Continue Levothyroxine Sodium [Synthroid] 100 mcg PO DAILY 30 Days tab Discontinued risperiDONE [RisperDAL] 2 mg PO DAILY DULoxetine HCL [Cymbalta] 60 mg PO BID Melatonin 5 mg PO HS Discharge Medication List Acetaminophen Tab [Tylenol] 650 mg PO Q6HR PRN 30 Days tab 04/23/20 [Rx] Benztropine Mesylate [Cogentin] 0.5 mg PO DAILY PRN #30 tab 04/23/20 [Rx] DULoxetine HCL [Cymbalta] 60 mg PO BID 30 Days capsule. 04/23/20 [Rx] Ibuprofen [Motrin] 600 mg PO Q8H PRN 30 Days tab 04/23/20 [Rx] Levothyroxine Sodium [Synthroid] 100 mcg PO DAILY 30 Days tab 04/23/20 [Rx] Melatonin 5 mg PO HS PRN 30 Days tablet 04/23/20 [Rx] Paliperidone IM [Invega Sustenna] 156 mg IM ONCE #1 syr 04/23/20 [Rx] Paliperidone Palmitate [Invega Sustenna] 78 mg IM ONCE #1 syringe 04/23/20 [Rx] Follow up Appointment(s)/Referral(s): Rajat Warner MD [Primary Care Provider] - 1-2 days Activity/Diet/Wound Care/Special Instructions: Activity and diet as tolerated. Avoid the use of street drugs and alcohol. Take all medications as prescribed. When you are in need of refills on your medications please contact your medical provider and/or outpatient psychiatrist to have this done. Please go to scheduled outpatient appointment for aftercare treatment. If symptoms return or become worse, call the crisis line at and/or go to the nearest emergency room for evaluation Discharge Disposition: HOME SELF-CARE
[2020-04-23 14:15] VITALS: TEMP 98.9
== END 2020-04-23 15:55 | disposition home or self-care (01) | DRG 885 ==
LOC: EC 12:47 → SUPCPDRO 12:47 → 3MHU 15:40
PROVIDERS: ADMIT Psychiatry & Neurology Psychiatry; ATTEND Psychiatry & Neurology Psychiatry
DX: F25.1 Schizoaffective disorder, depressive type (principal); J44.9 Chronic obstructive pulmonary disease, unspecified; E03.9 Hypothyroidism, unspecified; F12.10 Cannabis abuse, uncomplicated; F41.9 Anxiety disorder, unspecified; Z79.890 Hormone replacement therapy; Z79.899 Other long term (current) drug therapy; Z88.6 Allergy status to analgesic agent; Z88.5 Allergy status to narcotic agent; Z81.8 Family history of other mental and behavioral disorders
CPT/HCPCS: 80053; 80061; 80306; 82075; 83036; 84443; 85025; 99285

== ENCOUNTER 2023-02-05 14:37 | Inpatient (IN) | payer MEDICARE, OTHER ==
--- NOTE | 2023-02-05 14:39 | ED ---
General Adult HPI - General Source: RN notes reviewed <Jamila Esqueda - Last Filed: 02/05/23 14:38> - General Source: patient, RN notes reviewed, old records reviewed <Idris Anne - Last Filed: 02/05/23 18:22> - General Stated complaint: mental eval Time Seen by Provider: 02/05/23 14:38 - History of Present Illness Initial comments: 72-year-old female presents via police escort for a psychiatric evaluation. (Jamila Esqueda) This is a 72-year-old female presents emergency Department complaining of not being able have a bowel movement. Patient was brought in by police and the patient has a quarter and a petition. Patient is rambling on about her brother in 2019 and her not finding out to 2021. Patient also is babbling about she probably was brought in by police as a TV was to rule out. Patient states her medications changed colors recently she thinks is because she went to a different pharmacy. Patient denies any fever chills. Patient is chest pain difficulty breathing patient denies abdominal pain patient denies nausea vomiting diarrhea. Patient is unaware of why she is really here. (Idris Anne) - Related Data Home Medications Medication Instructions Recorded Confirmed ALPRAZolam [Xanax] 0.25 mg PO HS 02/05/23 02/05/23 DULoxetine HCL [Cymbalta] 60 mg PO DAILY 02/05/23 02/05/23 traMADol HCL 50 mg PO QID 02/05/23 02/05/23 Allergies Allergy/AdvReac Type Severity Reaction Status Date / Time aspirin AdvReac Nausea & Verified 02/05/23 17:50 Vomiting codeine AdvReac Vomiting Verified 02/05/23 17:50 Review of Systems ROS Other: All systems not noted in ROS Statement are negative. <Jamila Esqueda - Last Filed: 02/05/23 14:38> ROS Other: All systems not noted in ROS Statement are negative. <Idris Anne - Last Filed: 02/05/23 18:22> ROS Statement: Those systems with pertinent positive or pertinent negative responses have been documented in the HPI. Past Medical History Past Medical History: COPD, Thyroid Disorder Additional Past Medical History / Comment(s): pt poor historian History of Any Multi-Drug Resistant Organisms: None Reported Additional Past Surgical History / Comment(s): thyroid, carpal tunnel Past Psychological History: Unable to Obtain Smoking Status: Never smoker Past Alcohol Use History: None Reported Past Drug Use History: None Reported <IvetteghanshyamJamila snell - Last Filed: 02/05/23 14:38> General Exam <GómezchanningJamila - Last Filed: 02/05/23 14:38> <Idris Anne - Last Filed: 02/05/23 18:22> - General Exam Comments Initial Comments: Visual Physical Exam Vital signs reviewed General: Well-appearing, nontoxic, no acute distress. Head: Normocephalic, atraumatic Eyes: PERRLA, EOMI ENT: Airway patent Chest: Nonlabored breathing Skin: No visual rash, normal skin tone Neuro: Alert and oriented 3 Musculoskeletal: No gross abnormalities (Jamila Esqueda) GENERAL: Patient is well-developed and well-nourished. Patient is nontoxic and well- hydrated and is in no acute distress. ENT: Neck is soft and supple. No significant lymphadenopathy is noted. Oropharynx is clear. Moist mucous membranes. Neck has full range of motion without eliciting any pain. EYES: The sclera were anicteric and conjunctiva were pink and moist. Extraocular movements were intact and pupils were equal round and reactive to light. Eyelids were unremarkable. PULMONARY: Unlabored respirations. Good breath sounds bilaterally. No audible rales rhonchi or wheezing was noted. CARDIOVASCULAR: There is a regular rate and rhythm without any murmurs gallops or rubs. ABDOMEN: Soft and nontender with normal bowel sounds. SKIN: Skin is clear with no lesions or rashes and otherwise unremarkable. NEUROLOGIC: Patient is alert and oriented x3. Cranial nerves II through XII are grossly intact. Motor and sensory are also intact. Normal speech, volume and content. Symmetrical smile. MUSCULOSKELETAL: Normal extremities with adequate strength and full range of motion. No lower extremity swelling or edema. No calf tenderness. LYMPHATICS: No significant lymphadenopathy is noted PSYCHIATRIC: Patient is babbling and does understand why she is here she is obsessed with Y and when her brother and why no one told her. She is not suicidal homicidal. (Idris Anne) Course Vital Signs 02/05/23 14:48 Temperature 98.7 F Pulse Rate 71 Respiratory 19 Rate Blood Pressure 135/84 O2 Sat by Pulse 100 Oximetry Medical Decision Making - Lab Data Result diagrams: 02/05/23 15:17 02/05/23 15:17 <AnneIdris - Last Filed: 02/05/23 18:22> - Medical Decision Making Was pt. sent in by a medical professional or institution (, [facility], [facility], urgent care, hospital, or intermediate...) When possible be specific @ -No Did you speak to anyone other than the patient for history (EMS, parent, family, police, friend...)? What history was obtained from this source @ -Brought the patient and gave some of the history. Did you review nursing and triage notes (agree or disagree)? Why? @ -I reviewed and agree with nursing and triage notes Were old charts reviewed (outside hosp., previous admission, EMS record, old EKG, old radiological studies, urgent care reports/EKG's, intermediate records)? Report findings @ -I reviewed the patient's petition and court order. I reviewed prior visits to the hospital for this patient Differential Diagnosis (chest pain, altered mental status, abdominal pain women, abdominal pain men, vaginal bleeding, weakness, fever, dyspnea, syncope, headache, dizziness, GI bleed, back pain, seizure, CVA, palpatations, mental health, musculoskeletal)? @ -Differential Mental Health Depression, anxiety, bipolar, psychosis, schizophrenia, borderline personality, situational depression, adjustment disorder, behavioral disorder, brain tumor, malingering, substance abuse, encephalopathy, medication reaction, dementia, hypothyroidism, degenerative neurologic disorder, lupus.... This is not meant to be all-inclusive list EKG interpreted by me (3pts min.). @ -As above X-rays interpreted by me (1pt min.). @ -None done CT interpreted by me (1pt min.). @ -None done U/S interpreted by me (1pt. min.). @ -None done What testing was considered but not performed or refused? (CT, X-rays, U/S, labs)? Why? @ -None What meds were considered but not given or refused? Why? @ -None Did you discuss the management of the patient with other professionals (professionals i.e. , [facility], [facility], lab, RT, psych nurse, social services designee, roof designer, teacher, national service officer, home health care case manager)? Give summary @ -No Was smoking cessation discussed for >3mins.? @ -No Was critical care preformed (if so, how long)? @ -No Were there social determinants of health that impacted care today? How? (Homelessness, low income, unemployed, alcoholism, drug addiction, transportation, low edu. Level, literacy, decrease access to med. care, detention, rehab)? @ -No Was there de-escalation of care discussed even if they declined (Discuss DNR or withdrawal of care, Hospice)? DNR status @ -No What co-morbidities impacted this encounter? (DM, HTN, Smoking, COPD, CAD, Cancer, CVA, ARF, Chemo, Hep., AIDS, mental health diagnosis, sleep apnea, morbid obesity)? @ -None Was patient admitted / discharged? Hospital course, mention meds given and route, prescriptions, significant lab abnormalities, going to OR and other pertinent info. @ -Patient was seen by EPS the emergency department they determined the patient needed to be admitted. Undiagnosed new problem with uncertain prognosis? @ -No Drug Therapy requiring intensive monitoring for toxicity (Heparin, Nitro, Insulin, Cardizem)? @ -No Were any procedures done? @ -No Diagnosis/symptom? @ -Acute psychosis Acute, or Chronic, or Acute on Chronic? @ -Acute Uncomplicated (without systemic symptoms) or Complicated (systemic symptoms)? @ -Uncomplicated Side effects of treatment? @ -No Exacerbation, Progression, or Severe Exacerbation? @ -No Poses a threat to life or bodily function? How? (Chest pain, [place], [place], pneumonia, PE, COPD, DKA, ARF, appy, cholecystitis, CVA, Diverticulitis, Homicidal, Suicidal, threat to staff... and all critical care pts) @ -No (Idris Anne) - Lab Data Lab Results 02/05/23 02/05/23 02/05/23 Range/Units 15:17 15:17 15:51 WBC 7.9 (3.8-10.6) k/uL RBC 4.43 (3.80-5.40) m/uL Hgb 13.4 (11.4-16.0) gm/dL Hct 39.3 (34.0-46.0) % MCV 88.8 (80.0-100.0) fL MCH 30.2 (25.0-35.0) pg MCHC 34.0 (31.0-37.0) g/dL RDW 13.4 (11.5-15.5) % Plt Count 261 (150-450) k/uL MPV 8.1 Neutrophils % 63 % Lymphocytes % 24 % Monocytes % 7 % Eosinophils % 4 % Basophils % 1 % Neutrophils # 5.0 (1.3-7.7) k/uL Lymphocytes # 1.9 (1.0-4.8) k/uL Monocytes # 0.5 (0-1.0) k/uL Eosinophils # 0.3 (0-0.7) k/uL Basophils # 0.0 (0-0.2) k/uL Sodium 138 (137-145) mmol/L Potassium 4.4 (3.5-5.1) mmol/L Chloride 102 (98-107) mmol/L Carbon Dioxide 26 (22-30) mmol/L Anion Gap 10 mmol/L BUN 23 H (7-17) mg/dL Creatinine 0.73 (0.52-1.04) mg/dL Est GFR (CKD-EPI)AfAm >90 (>60 ml/min/1.73 sqM) Est GFR (CKD-EPI)NonAf 82 (>60 ml/min/1.73 sqM) Glucose 118 H (74-99) mg/dL Calcium 9.7 (8.4-10.2) mg/dL Total Bilirubin 0.4 (0.2-1.3) mg/dL AST 22 (14-36) U/L ALT 22 (4-34) U/L Alkaline Phosphatase 80 (38-126) U/L Total Protein 6.8 (6.3-8.2) g/dL Albumin 4.2 (3.5-5.0) g/dL Urine Opiates Screen Not Detected (NotDetected) Ur Oxycodone Screen Not Detected (NotDetected) Urine Methadone Screen Not Detected (NotDetected) Ur Propoxyphene Screen Not Detected (NotDetected) Ur Barbiturates Screen Not Detected (NotDetected) U Tricyclic Antidepress Not Detected (NotDetected) Ur Phencyclidine Scrn Not Detected (NotDetected) Ur Amphetamines Screen Not Detected (NotDetected) U Methamphetamines Scrn Not Detected (NotDetected) U Benzodiazepines Scrn Detected H (NotDetected) Urine Cocaine Screen Not Detected (NotDetected) U Marijuana (THC) Screen Detected H (NotDetected) Disposition <Jamila Esqueda - Last Filed: 02/05/23 14:38> Time of Disposition: 18:22 <Idris Anne - Last Filed: 02/05/23 18:22> Clinical Impression: Acute psychosis Disposition: ADMITTED IP TO THIS HOSP Referrals: Rajat Warner MD [Primary Care Provider] - 1-2 days
[2023-02-05 15:52] LABS: Basophils % (A) 1 %; Eosinophils # (A) 0.3 k/uL (0-0.7); Eosinophils % (A) 4 %; HCT 39.3 % (34.0-46.0); HGB 13.4 gm/dL (11.4-16.0); Lymphocytes # (A) 1.9 k/uL (1.0-4.8); Lymphocytes % (A) 24 %; MCH 30.2 pg (25.0-35.0); MCV 88.8 fL (80.0-100.0); Mean Platelet Volume 8.1; Monocytes # (A) 0.5 k/uL (0-1.0); Monocytes % (A) 7 %; Neutrophils % (A) 63 %; Platelet Count 261 k/uL (150-450); RBC 4.43 m/uL (3.80-5.40); RDW 13.4 % (11.5-15.5); WBC 7.9 k/uL (3.8-10.6)
[2023-02-05 16:11] LABS: ALT 22 U/L (4-34); AST 22 U/L (14-36); African American GFR (CKD) >90 (>60 ml/min/1.73 sqM); Albumin 4.2 g/dL (3.5-5.0); Alkaline Phosphatase 80 U/L (38-126); Anion Gap 10 mmol/L; Blood Urea Nitrogen 23 mg/dL (7-17); Calcium 9.7 mg/dL (8.4-10.2); Carbon Dioxide 26 mmol/L (22-30); Chloride 102 mmol/L (98-107); Glucose 118 mg/dL (74-99); Non-African American GFR(CKD) 82 (>60 ml/min/1.73 sqM); Potassium 4.4 mmol/L (3.5-5.1); Sodium 138 mmol/L (137-145); Total Bilirubin 0.4 mg/dL (0.2-1.3); Total Protein 6.8 g/dL (6.3-8.2)
[2023-02-05 16:26] LABS: Amphetamine Screen,Urine Not Detected (NotDetected); Barbiturate Screen,Urine Not Detected (NotDetected); Benzodiazepines Screen,Urine Detected (NotDetected); Cocaine Screen,Urine Not Detected (NotDetected); Methadone Screen, Urine Not Detected (NotDetected); Opiate Screen,Urine Not Detected (NotDetected); Oxycodone Screen, Urine Not Detected (NotDetected); Phencyclidine Screen,Urine Not Detected (NotDetected); Tricyclic Antidepressant,Urine Not Detected (NotDetected); Urn Cannabinoid Scrn Detected (NotDetected)
[2023-02-05] MEDS ORDERED: MAGNESIUM HYDROXIDE 2,400 MG/10 ML CUP PO PRN (22:10)
[2023-02-05] MEDS ORDERED: OLANZapine 10 MG VIAL IM PRN (22:10)
[2023-02-05] MEDS ORDERED: MAG HYDROX/AL HYDROX/SIMETH 30 ML CUP PO PRN (22:10)
[2023-02-05] MEDS: ACETAMINOPHEN TAB 325 MG TAB PO PRN (23:33)
[2023-02-06] MEDS: NAPROXEN 250 MG TAB PO SCH ×4 (03:54→20:50)
[2023-02-06] MEDS: ACETAMINOPHEN TAB 325 MG TAB PO PRN (07:45)
[2023-02-06 08:50] LABS: Basophils # (A) 0.1 k/uL (0-0.2); Basophils % (A) 1 %; Eosinophils # (A) 0.5 k/uL (0-0.7); Eosinophils % (A) 8 %; HCT 41.1 % (34.0-46.0); HGB 13.8 gm/dL (11.4-16.0); Lymphocytes # (A) 1.7 k/uL (1.0-4.8); Lymphocytes % (A) 29 %; MCH 30.3 pg (25.0-35.0); MCHC 33.6 g/dL (31.0-37.0); MCV 90.1 fL (80.0-100.0); Mean Platelet Volume 7.9; Monocytes # (A) 0.4 k/uL (0-1.0); Monocytes % (A) 7 %; Neutrophils # (A) 3.2 k/uL (1.3-7.7); Neutrophils % (A) 53 %; Platelet Count 259 k/uL (150-450); RBC 4.56 m/uL (3.80-5.40); RDW 13.5 % (11.5-15.5)
[2023-02-06 09:02] LABS: Calcium 9.6 mg/dL (8.4-10.2); Potassium 4.7 mmol/L (3.5-5.1); Total Bilirubin 0.5 mg/dL (0.2-1.3); Total Protein 6.5 g/dL (6.3-8.2)
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
[2023-02-06 13:03] LABS: Appearance,Urine Clear (Clear); Bilirubin,Urine Negative (Negative); Blood,Urine Negative (Negative); Color,Urine Yellow; Glucose,Urine (UA) Negative (Negative); Ketones,Urine Negative (Negative); Leukocyte Esterase,Urine Moderate (Negative); Mucus,Urine Rare /hpf; Nitrite,Urine Negative (Negative); PH, Urine 5.5 (5.0-8.0); Protein,Urine Negative (Negative); RBC,Urine 1 /hpf (0-5); Specific Gravity,Urine 1.016 (1.001-1.035); Squamous Epithelial Cell,Urine 1 /hpf (0-4); Urobilinogen,Urine <2.0 mg/dL (<2.0); WBC,Urine 6 /hpf (0-5)
[2023-02-06] MEDS ORDERED: PALIPERIDONE 3 MG TAB.ER.24 PO SCH (21:00)
[2023-02-07] MEDS: ACETAMINOPHEN TAB 325 MG TAB PO PRN ×2 (00:04→16:35)
[2023-02-07] MEDS: OLANZapine 5 MG TAB PO PRN ×2 (00:05→21:35)
--- NOTE | 2023-02-07 05:56 | P.CONS ---
History of Present Illness - Reason for Consult Consult date: 02/07/23 - History of Present Illness The patient is a 72-year-old female with a PMH of COPD who was brought into the emergency room under police custody for psychiatric evaluation. The patient was reportedly having pressured speech and rambling at the time of her ED evaluation. The patient was admitted to the mental health unit where she was seen and evaluated complaint by mental health unit RN Yoana. The patient reports that she is currently congested and is battling a cold. She denied experiencing productive cough, fever, chills, chest pain, shortness of breath. She denied any additional complaints. Laboratory evaluation was performed and was reviewed and remarkable for TSH of 0.142 with urine toxicology positive for marijuana and benzodiazepines. Review of systems: Pertinent positives and negatives as discussed in HPI, a complete review of systems was performed and all other systems are negative. Physical examination: General: non toxic, no distress, appears at stated age, obese Derm: no unusual rashes/lesions, no unusual ecchymoses, warm, dry Head: atraumatic, normocephalic, symmetric Eyes: EOMI, no lid lag, anicteric sclera ENT: Nose and ears atraumatic, no thrush, no pharyngeal erythema Neck: trachea midline, supple Mouth: no lip lesion, mucus membranes moist Cardiovascular: S1S2 reg, no murmur, no edema Lungs: CTA bilateral, no rhonchi, no rales , no accessory muscle use Abdominal: soft, nontender to palpation, no guarding Ext: no gross muscle atrophy, no contractures, Neuro: No gross focal neuro deficits noted Psych: Alert, oriented, appropriate affect Assessment: Viral URI Marijuana abuse Low TSH Plan: Hold off on abxs for now with conservative management at this time Adivsed on importance of marijuana use cessation Obtain T3 and T4 levels Thank you for allowing us to participate in the care of this patient. We will follow peripherally. Do not hesitate to contact us with questions. Someone can be reached from the [facility] hospitalist group at all hours of the day at [phone]. Past Medical History Past Medical History: COPD, Thyroid Disorder Additional Past Medical History / Comment(s): pt poor historian History of Any Multi-Drug Resistant Organisms: None Reported Additional Past Surgical History / Comment(s): thyroid, carpal tunnel Smoking Status: Never smoker - Past Family History Father Family Medical History: Hypertension Medications and Allergies Home Medications Medication Instructions Recorded Confirmed Type ALPRAZolam [Xanax] 0.25 mg PO HS 02/05/23 02/05/23 History DULoxetine HCL [Cymbalta] 60 mg PO DAILY 02/05/23 02/05/23 History traMADol HCL 50 mg PO QID 02/05/23 02/05/23 History Allergies Allergy/AdvReac Type Severity Reaction Status Date / Time aspirin AdvReac Nausea & Verified 02/05/23 17:50 Vomiting codeine AdvReac Vomiting Verified 02/05/23 17:50 Physical Exam Vitals: Vital Signs Temp Pulse Resp BP Pulse Ox 02/07/23 00:47 97.9 F 75 16 136/66 98 02/07/23 00:06 97.9 F 92 16 194/84 98 Results CBC & Chem 7: 02/06/23 08:24 02/06/23 08:24 Labs: Abnormal Lab Results - Last 24 Hours (Table) 02/05/23 02/06/23 Range/Units 15:51 08:24 BUN 22 H (7-17) mg/dL Glucose 127 H (74-99) mg/dL TSH 0.142 L (0.465-4.680) mIU/L Ur Leukocyte Esterase Moderate H (Negative) Urine WBC 6 H (0-5) /hpf Urine Mucus Rare H (None) /hpf
[2023-02-07] MEDS: NAPROXEN 250 MG TAB PO SCH ×2 (13:05→21:34)
[2023-02-07] MEDS ORDERED: ONDANSETRON ODT 4 MG TAB PO PRN (16:49)
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
[2023-02-07] MEDS: PALIPERIDONE 3 MG TAB.ER.24 PO SCH (21:33)
[2023-02-08] MEDS: NAPROXEN 250 MG TAB PO SCH ×2 (09:20→20:24)
[2023-02-08] MEDS ORDERED: ALBUTEROL NEBULIZED 2.5 MG/3 ML INHALATION PRN (10:16)
[2023-02-08] MEDS ORDERED: ALBUTEROL INHALER 60 PUFF/8 GM INHALER (MHU) INHALATION PRN (10:28)
[2023-02-08] MEDS: ACETAMINOPHEN TAB 325 MG TAB PO PRN (12:52)
[2023-02-08] MEDS ORDERED: LOPERAMIDE 2 MG CAP PO PRN (14:54)
--- NOTE | 2023-02-08 20:05 | P.PN ---
Progress Note - Text Progress Note Date: 02/08/23 Interval history: Patient was seen in the hallway in her wheelchair. Her mood appears more stable today after increasing the Invega to 6 mg QHS last night. She reports her mood today is "peachy", but continues to express nonspecific somatic complains of feeling her head is spinning. She reports good sleep. At this time patient denies any suicidal or homicidal ideation, intent or plan. Denies any auditory or visual hallucinations. Patient denies any side effects from the medications and has been compliant with meds. Mental status exam: General Appearance: Patient appears to be stated age, obese, disheveled, dressed in hospital gown. Behavior: No agitated behavior. Patient is seated in her wheelchair in the hallway. Speech: Patient's speech is fluent and non-pressured. Mood/Affect: Mood is improving mildly, affect is congruent and constricted. Suicidality/Homicidality: Patient denies having any suicidal or homicidal ideation intent or plan. Perceptions: Patient denies any auditory or visual hallucinations. Though content/process: There is no evidence of any delusional thought content and thought process is linear and goal-directed. Memory and concentration: AOX3, grossly intact for the purposes of this session Judgment and insight: improving mildly Assessment/Plan: Continue with current diagnosis. Patient continues to meet criteria for inpatient psychiatric admission for symptom stabilization and safety. Continue Invega 6 mg QHS for mood stabilization. Medical team aware of patients somatic complaints and they plan to see patient to address these concerns. Monitor for medication compliance and for any psychotropic medication side effects. Will continue to monitor ongoing response to treatment. Encouraged participation in milieu.
[2023-02-08] MEDS: PALIPERIDONE 3 MG TAB.ER.24 PO SCH (20:25)
[2023-02-08] MEDS: OLANZapine 5 MG TAB PO PRN (20:26)
[2023-02-09 06:34] VITALS: BP 114/79; PULSE 82; RESP 18; TEMP 97.6
[2023-02-09] MEDS: NAPROXEN 250 MG TAB PO SCH (08:13)
--- NOTE | 2023-02-09 11:44 | P.DS ---
Providers Date of admission: 02/05/23 22:03 Expected date of discharge: 02/09/23 Attending physician: Oziel Sauer MD Consults: 02/05/23 22:10 Consult Physician Routine Consulting Provider: Jimi Douglas Consult Reason/Comments: H&P Do you want consulting provider notified?: Yes Primary care physician: Rajat Bernalinian - Discharge Diagnosis(es) (1) Schizoaffective disorder, bipolar type Current Visit: Yes Status: Acute Priority: High (2) Cannabis use disorder, mild, abuse Current Visit: Yes Status: Acute Priority: Medium Hospital Course: Admission HPI: Patient is a , on Social Security, 72-year-old female with significant history of schizoaffective disorder and cannabis abuse who presented to the hospital on 02/05/2023, brought in by EMS for psychosis. Patient presented to the hospital on 02/05/2023, brought in on a pickup order by EMS for psychosis. In the emergency department, the patient was noted to be santana y tangential, hyperverbal, and presenting with a flight of ideas. She was unable to maintain a linear conversation and was very difficult to redirect. Her topics varied from talking about new phone for her dogs to getting massages. She was also religiously preoccupied and endorsing auditory hallucinations. The patient signed herself in voluntarily on the psychiatric unit. Upon evaluation on the psychiatric unit, the patient reports that she is uncertain as to why she was brought to the hospital. She reports that police just showed up at her home and decided to bring her to the hospital. She is unable to maintain a linear history of the events leading up to this hospitalization. She reports that "the [employer] was taking money out of my account without telling me. My electrical bill is parth high. I thought about bringing my money in a jar in the backyard like they used to. She then states that "the Lord told me what to listen to and what not to do. She does admit to auditory hallucinations stating that the Lord often talks to her. She reports that she has been off marijuana for 9 months however "God told me that I can use marijuana in the afternoons." She reports that she recently started using marijuana again over the past few days prior to this admission. In regards to mood, the patient is currently denying any suicidal or homicidal ideation, intention, and/or plan. She reports no access to firearms or other weapons. She reports that she has been sleeping well and denies any periods of excessive energy. She states that she is able to sleep for most of the day, "especially after I just cuddle with my dogs." She does endorse some grandiosity, mood lability, and a flight of ideas however is not currently endorsing any period of excessive energy or increased goal-directed activity. She is not reporting any visual hallucinations. She reports no paranoia. The patient states that she is willing to sign herself voluntarily on to the psychiatric unit. She is agreeable to restarting Invega. As per review of her outpatient treatment, the patient has not been prescribed any antipsychotic or mood stabilizing medication since 2019. Patient states that she has a history of depression however is unable to list any previous diagnoses. As per chart review, the patient has a history of schizophrenia and PTSD. She [facility] currently with the [facility] and sees [facility] through them. She has a history of being prescribed Invega and being on the long-acting injectable. She has also been previously prescribed Cymbalta. She reports a prior attempt at suicide in the distant past when she was in her 20s/30s. She has been previously hospitalized on a psychiatric unit in 2019. Hospital course: Upon admission to the unit patient was initially presenting as overtly manic and psychotic. She was very euphoric, religiously preoccupied, and singing loudly in the milieu. Patient was however directable and agreeable to commence treatment. Patient got along well with other patients on the unit and followed unit protocol. Patient was compliant with the medications and denied any side effects throughout hospital course. Patient was started on Invega for mood stabilization and management of schizoaffective disorder, bipolar type. Patient spoke of her stressors and engaged in therapy both group and individual. Patient was also seen by medical team for history and physical exam. Throughout the course of the hospitalization patient gradually improved with regards to psychosis and anne-marie. Her sleep improved. She became future oriented with impro allison insight and judgment. On the day of discharge patient denied any suicidal or homicidal ideations intent or plan denied any auditory or visual hallucinations. Patient endorsed wanting to live for her health and her family, including her dogs. The patient denied any access to guns or weapons. Patient denied any paranoia and did not endorse any delusions. Patient does not have a significant history of substance abuse however was counseled on abstaining from all substances including alcohol and marijuana. Patient was also counseled on the medications and need for regular compliance and was encouraged to follow-up with their outpatient appointment for mental health and also for primary care. Prior to discharge a family meeting will be arranged by social scientist to answer any questions and ensure safety upon discharge. The patient did not endorse any chest pain, shortness of breath, involuntary muscle movements, palpitations, or acute dystonic reactions or akathisia. She did endorse mild fatigue and lightheadedness however vitals were stable upon discharge. The risks, benefits, and treatment alternatives were discussed with the patient at length. She is agreeable with continuing Invega. Mental status exam: General Appearance: Patient appears to be stated age is alert, pleasant, and cooperative. Patient is in no acute distress and has fair hygiene and grooming Behavior: Patient is calmly seated without any agitated behavior. Speech: Patient's speech is fluent and nonpressured. Mood/Affect: Patient reports their mood is "much better", affect is congruent and euthymic to bright. Suicidality/Homicidality: Patient denies having any suicidal or homicidal ideation intent or plan. Perceptions: Patient denies any auditory or visual hallucinations. Though content/process: There is no evidence of any delusional thought content and thought process is linear and goal-directed. Patient is future oriented. Memory and concentration: AOX3, grossly intact for the purposes of this session. Can spell "WORLD" backwards correctly. Judgment and insight: Improved with guarded prognosis Impression: Schizoaffective disorder, bipolar type Cannabis use disorder Plan: -Continue with discharge today as patient has improved and stabilized psychiatrically and is not currently an imminent threat to herself and/or others. Patient will remain at chronically elevated risk due to the general population due to the chronicity and severity of her mental illness as well as her cannabis use. -Continue medications: Invega 6 mg by mouth at bedtime for mood stabilization/psychosis Xanax 0.25 mg at bedtime -Patient was counseled on the need for medication compliance and appropriate follow-up at mental health and also primary care for medical issues. Patient verbalized understanding and agreed. -Social work to arrange for and conduct family meeting to ensure safety upon discharge and answer any questions/concerns. Social work also to arrange for patients follow up appointments with [facility] through the [facility] for psychiatric care along with follow up with primary care provider. -Patient counseled on abstaining from recreational drugs and marijuana and alcohol. Was informed/educated on the adverse effects on their physical and mental health. Patient verbally agreed and understood. -Patient was instructed to return to the hospital or seek immediate medical care if their psychiatric or medical symptoms do worsen or reoccur. -Psychoeducation and supportive therapy provided to patient. Risks and benefits of pharmacological treatment versus the risks and benefits of nontreatment weight and discussed. Informed consent discussion held. Common side effects of psychotropics discussed such as, but not limited to headache, GI disturbance, sexual dysfunction, movement disorders, sedation, and orthostatic hypotension. Life threatening and blackbox warnings of prescribed medications also discussed. Potential risks of operating a vehicle or heavy machinery discussed with patient at length. Advised on importance of compliance and a reliable and responsible manner. Patient advised to review FDA consumer labeling of all medications prior to taking. Patient verbalized understanding of potential risks, and agrees with current treatment plan. Patient advised to medically contact physician/emergency personnel if any acute changes in condition occur. Vital Signs Temp 97.6 F 02/09/23 06:33 Pulse 82 02/09/23 06:33 Resp 18 02/09/23 06:33 BP 114/79 02/09/23 06:33 Pulse Ox 97 02/09/23 06:33 FiO2 Intake & Output 02/08/23 02/09/23 02/09/23 18:59 06:59 18:59 Weight 99 kg Laboratory Results WBC 6.0 k/uL (3.8-10.6) 02/06/23 08:24 RBC 4.56 m/uL (3.80-5.40) 02/06/23 08:24 Hgb 13.8 gm/dL (11.4-16.0) 02/06/23 08:24 Hct 41.1 % (34.0-46.0) 02/06/23 08:24 MCV 90.1 fL (80.0-100.0) 02/06/23 08:24 MCH 30.3 pg (25.0-35.0) 02/06/23 08:24 MCHC 33.6 g/dL (31.0-37.0) 02/06/23 08:24 RDW 13.5 % (11.5-15.5) 02/06/23 08:24 Plt Count 259 k/uL (150-450) 02/06/23 08:24 MPV 7.9 02/06/23 08:24 Neutrophils % 53 % 02/06/23 08:24 Lymphocytes % 29 % 02/06/23 08:24 Monocytes % 7 % 02/06/23 08:24 Eosinophils % 8 % 02/06/23 08:24 Basophils % 1 % 02/06/23 08:24 Neutrophils # 3.2 k/uL (1.3-7.7) 02/06/23 08:24 Lymphocytes # 1.7 k/uL (1.0-4.8) 02/06/23 08:24 Monocytes # 0.4 k/uL (0-1.0) 02/06/23 08:24 Eosinophils # 0.5 k/uL (0-0.7) 02/06/23 08:24 Basophils # 0.1 k/uL (0-0.2) 02/06/23 08:24 Sodium 140 mmol/L (137-145) 02/06/23 08:24 Potassium 4.7 mmol/L (3.5-5.1) 02/06/23 08:24 Chloride 104 mmol/L (98-107) 02/06/23 08:24 Carbon Dioxide 29 mmol/L (22-30) 02/06/23 08:24 Anion Gap 7 mmol/L 02/06/23 08:24 BUN 22 mg/dL (7-17) H 02/06/23 08:24 Creatinine 0.79 mg/dL (0.52-1.04) 02/06/23 08:24 Est GFR (CKD-EPI)AfAm 86 (>60 ml/min/1.73 sqM) 02/06/23 08:24 Est GFR (CKD-EPI)NonAf 75 (>60 ml/min/1.73 sqM) 02/06/23 08:24 Glucose 127 mg/dL (74-99) H 02/06/23 08:[address] Glu mg/dL 119 02/06/23 08:24 Hemoglobin A1c 5.8 % (0.0-6.0) 02/06/23 08:24 Calcium 9.6 mg/dL (8.4-10.2) 02/06/23 08:24 Total Bilirubin 0.5 mg/dL (0.2-1.3) 02/06/23 08:24 AST 22 U/L (14-36) 02/06/23 08:24 ALT 22 U/L (4-34) 02/06/23 08:24 Alkaline Phosphatase 74 U/L (38-126) 02/06/23 08:24 Total Protein 6.5 g/dL (6.3-8.2) 02/06/23 08:24 Albumin 4.0 g/dL (3.5-5.0) 02/06/23 08:24 TSH 0.142 mIU/L (0.465-4.680) L 02/06/23 08:24 Free T4 1.20 ng/dL (0.78-2.19) 02/06/23 08:24 Total T3 127.0 ng/dL (60.0-180.0) 02/06/23 08:24 Urine Color Yellow 02/05/23 15:51 Urine Appearance Clear (Clear) 02/05/23 15:51 Urine pH 5.5 (5.0-8.0) 02/05/23 15:51 Ur Specific [place] 1.016 (1.001-1.035) 02/05/23 15:51 Urine Protein Negative (Negative) 02/05/23 15:51 Urine Glucose (UA) Negative (Negative) 02/05/23 15:51 Urine Ketones Negative (Negative) 02/05/23 15:51 Urine Blood Negative (Negative) 02/05/23 15:51 Urine Nitrite Negative (Negative) 02/05/23 15:51 Urine Bilirubin Negative (Negative) 02/05/23 15:51 Urine Urobilinogen <2.0 mg/dL (<2.0) 02/05/23 15:51 Ur Leukocyte Esterase Moderate (Negative) H 02/05/23 15:51 Urine RBC 1 /hpf (0-5) 02/05/23 15:51 Urine WBC 6 /hpf (0-5) H 02/05/23 15:51 Ur Squamous Epith Cells 1 /hpf (0-4) 02/05/23 15:51 Urine Mucus Rare /hpf (None) H 02/05/23 15:51 Urine Opiates Screen Not Detected (NotDetected) 02/05/23 15:51 Ur Oxycodone Screen Not Detected (NotDetected) 02/05/23 15:51 Urine Methadone Screen Not Detected (NotDetected) 02/05/23 15:51 Ur Propoxyphene Screen Not Detected (NotDetected) 02/05/23 15:51 Ur Barbiturates Screen Not Detected (NotDetected) 02/05/23 15:51 U Tricyclic Antidepress Not Detected (NotDetected) 02/05/23 15:51 Ur Phencyclidine Scrn Not Detected (NotDetected) 02/05/23 15:51 Ur Amphetamines Screen Not Detected (NotDetected) 02/05/23 15:51 U Methamphetamines Scrn Not Detected (NotDetected) 02/05/23 15:51 U Benzodiazepines Scrn Detected (NotDetected) H 02/05/23 15:51 Urine Cocaine Screen Not Detected (NotDetected) 02/05/23 15:51 U Marijuana (THC) Screen Detected (NotDetected) H 02/05/23 15:51 Coronavirus (PCR) Not Detected (Not Detectd) 02/05/23 18:42 Allergies Allergy/AdvReac Type Severity Reaction Status Date / Time aspirin AdvReac Nausea & Verified 02/05/23 17:50 Vomiting codeine AdvReac Vomiting Verified 02/05/23 17:50 Patient Condition at Discharge: Stable Plan - Discharge Summary Discharge Rx Participant: No New Discharge Prescriptions: New Paliperidone [Invega] 6 mg PO HS tab Continue traMADol HCL 50 mg PO QID ALPRAZolam [Xanax] 0.25 mg PO HS Discontinued DULoxetine HCL [Cymbalta] 60 mg PO DAILY Discharge Medication List ALPRAZolam [Xanax] 0.25 mg PO HS 02/05/23 [History] traMADol HCL 50 mg PO QID 02/05/23 [History] Paliperidone [Invega] 6 mg PO HS tab 02/09/23 [Rx] Follow up Appointment(s)/Referral(s): Irwin CHAMBERS [Other] - 02/18/23 1:00 pm (02/18/2023 1:00PM - 2:00PM DEREK CHAMBERS 02/24/2023 9:00AM - 9:30AM HARPREET ConteRajat Soares MD [Primary Care Provider] - 1-2 days Activity/Diet/Wound Care/Special Instructions: Avoid the use of street drugs and alcohol. Take all medications as prescribed. When you are in need of refills on your medications, please contact your medical provider and/or outpatient psychiatrist to have this done. Please go to scheduled outpatient appointments for aftercare treatment. If symptoms return or become worse, call the crisis line at and/or go to the nearest emergency room for evaluation. Discharge Disposition: HOME SELF-CARE
== END 2023-02-09 15:23 | disposition home or self-care (01) | DRG 885 ==
LOC: EC 14:37 → 3MHU 22:03
PROVIDERS: ADMIT Psychiatry & Neurology Psychiatry; ATTEND Psychiatry & Neurology Psychiatry
DX: F25.0 Schizoaffective disorder, bipolar type (principal); F12.10 Cannabis abuse, uncomplicated; F43.10 Post-traumatic stress disorder, unspecified; J06.9 Acute upper respiratory infection, unspecified; R94.6 Abnormal results of thyroid function studies; Z63.4 Disappearance and death of family member; Z79.899 Other long term (current) drug therapy; Z88.6 Allergy status to analgesic agent; Z88.5 Allergy status to narcotic agent; Z20.822 Contact with and (suspected) exposure to COVID-19; Z28.21 Immunization not carried out because of patient refusal
CPT/HCPCS: 36415; 80053; 80306; 81001; 82075; 83036; 84436; 84439; 84443; 84480; 85025; 87635; 99285

== ENCOUNTER → 2023-03-18 | Outpatient (CLI) | payer OTHER ==
--- NOTE | 2023-03-18 14:43 | US ---
EXAMINATION TYPE: US thyroid st tissue head/neck DATE OF EXAM: 03/18/2023 COMPARISON: NONE CLINICAL INDICATION: Female, 73 years old with history of E04.1 NONTOXIC SINGLE THYROID NODULE; Patie nt states taking radioactive pills to get rid of nodules. GLAND SIZE: Right Lobe: 2.0 x 0.6 x 0.9 cm Overall Parenchyma: heterogenous Left Lobe: 2.7 x 0.8 x 0.9 cm Overall Parenchyma: heterogenous Isthmus Thickness: 0.2 cm NODULES RIGHT: # of nodules measured on right: 0 LEFT: # of nodules measured on left: 0 ISTHMUS: # of nodules measured in the isthmus: 0 Bilateral neck scanned, no evidence of lymphadenopathy. IMPRESSION: 1. Unremarkable thyroid ultrasound.
== END | disposition home or self-care (01) ==
LOC: RADUSWWP 13:40
PROVIDERS: ATTEND Emergency Medicine
DX: E04.1 Nontoxic single thyroid nodule (principal)
CPT/HCPCS: 76536

== ENCOUNTER 2024-07-13 14:05 | Emergency (ER) | payer OTHER ==
--- NOTE | 2024-07-13 14:15 | ED ---
Psych HPI - General Stated Complaint: petition Time Seen by Provider: 07/13/24 14:10 Source: RN notes reviewed, old records reviewed, Caregiver Mode of arrival: EMS Limitations: altered mental status - History of Present Illness Initial Comments: This is a 74-year-old female to the ER for evaluation patient is present senting today with petition and CERT in regards to need for mental health eval duration MD Complaint: altered mental status -: unknown Associated Psychiatric Symptoms: racing thoughts, visual hallucinations, delusions History of same: Yes Quality: constant Improves With: none Worsens With: none - Related Data Home Medications Medication Instructions Recorded Confirmed ALPRAZolam [Xanax] 0.25 mg PO HS 02/05/23 07/13/24 Albuterol Nebulized [Ventolin 2.5 mg INHALATION RT-Q6H PRN 07/13/24 07/13/24 Nebulized] Albuterol Sulfate [Albuterol 2 puff INHALATION RT-Q6H PRN 07/13/24 07/13/24 Sulfate Hfa] Atorvastatin [Lipitor] 10 mg PO HS 07/13/24 07/13/24 Bismuth Subsalicylate 524 mg PO BID PRN 07/13/24 07/13/24 [Pepto-Bismol] Cetirizine HCl [Zyrtec] 10 mg PO HS 07/13/24 07/13/24 Cholecalciferol (Vitamin D3) 125 mcg PO DAILY 07/13/24 07/13/24 [Vitamin D3 (125 MCG = 5,000 IU)] Cyanocobalamin [Vitamin B-12 1,000 mcg SQ QMONTHLY 07/13/24 07/13/24 Injection] DULoxetine HCL [Cymbalta] 60 mg PO BID 07/13/24 07/13/24 Desloratadine [Clarinex] 5 mg PO DAILY 07/13/24 07/13/24 Docusate [Colace] 100 mg PO DAILY 07/13/24 07/13/24 Esomeprazole Magnesium [NexIUM] 40 mg PO DAILY 07/13/24 07/13/24 Famotidine [Pepcid] 20 mg PO BID 07/13/24 07/13/24 Fluticasone Nasal [place] [Flonase 2 spr EA NOSTRIL DAILY 07/13/24 07/13/24 Nasal [place]] Fluticasone/Umeclidin/Vilanter 1 puff INHALATION RT-DAILY 07/13/24 07/13/24 [Trelegy Ellipta 200-62.5-25] Gabapentin [Neurontin] 100 mg PO TID 07/13/24 07/13/24 Glucosa [place] 2Kcl/Chondroitin [place] 3 cap PO DAILY 07/13/24 07/13/24 [Glucosamine-Chondroitin Cap] Hydrocortisone Cream 1 applic TOPICAL DAILY PRN 07/13/24 07/13/24 [Hydrocortisone 1% Cream] L.acidoph,Paracasei, B.lactis 1 cap PO DAILY 07/13/24 07/13/24 [Probiotic] Levothyroxine Sodium [Synthroid] 100 mcg PO DAILY 07/13/24 07/13/24 Loperamide [Imodium] 2 mg PO TID 07/13/24 07/13/24 Loratadine 10 mg PO DAILY 07/13/24 07/13/24 Melatonin 5 mg PO HS 07/13/24 07/13/24 Meloxicam [Mobic] 7.5 mg PO DAILY 07/13/24 07/13/24 Metoclopramide HCl [Reglan] 5 mg PO BID PRN 07/13/24 07/13/24 Ondansetron Odt [Zofran Odt] 4 mg PO BID PRN 07/13/24 07/13/24 Oyster Shell Calcium 500mg 500 mg PO BID 07/13/24 07/13/24 Sennosides [Senokot] 8.6 mg PO HS 07/13/24 07/13/24 Tiotropium 2.5 Mcg/Puff [Spiriva 1 puff INHALATION RT-BID 07/13/24 07/13/24 Respimat 2.5 Mcg] Vitamin B Complex-Vitamin B-12 1 tab PO DAILY 07/13/24 07/13/24 amLODIPine [Norvasc] 5 mg PO DAILY 07/13/24 07/13/24 diphenhydrAMINE HCL [Benadryl] 25 mg PO TID PRN 07/13/24 07/13/24 lamoTRIgine [LaMICtal] 25 mg PO BID 07/13/24 07/13/24 lisinopriL [Zestril] 20 mg PO DAILY 07/13/24 07/13/24 traMADol HCL 50 mg PO QID 07/13/24 07/13/24 Allergies Allergy/AdvReac Type Severity Reaction Status Date / Time amoxicillin Allergy Per Verified 07/13/24 16:07 [place] iodine Allergy Per Verified 07/13/24 16:07 [place] tetracycline Allergy Per Verified 07/13/24 16:07 [place] aspirin AdvReac Nausea & Verified 07/13/24 16:07 Vomiting codeine AdvReac Vomiting Verified 07/13/24 16:07 Review of Systems ROS Statement: Those systems with pertinent positive or pertinent negative responses have been documented in the HPI. ROS Other: All systems not noted in ROS Statement are negative. Past Medical History Past Medical History: COPD, Thyroid Disorder Additional Past Medical History / Comment(s): pt poor historian History of Any Multi-Drug Resistant Organisms: None Reported Additional Past Surgical History / Comment(s): thyroid, carpal tunnel Smoking Status: Never smoker - Past Family History Father Family Medical History: Hypertension General Exam General appearance: alert, in no apparent distress Head exam: Present: atraumatic, normocephalic, normal inspection Eye exam: Present: normal appearance, PERRL, EOMI. Absent: scleral icterus, conjunctival injection, periorbital swelling ENT exam: Present: normal exam, mucous membranes moist Neck exam: Present: normal inspection. Absent: tenderness, meningismus, lymphadenopathy Respiratory exam: Present: normal lung sounds bilaterally. Absent: respiratory distress, wheezes, rales, rhonchi, stridor Cardiovascular Exam: Present: regular rate, normal rhythm, normal heart sounds. Absent: systolic murmur, diastolic murmur, rubs, gallop, clicks GI/Abdominal exam: Present: soft, normal bowel sounds. Absent: distended, tenderness, guarding, rebound, rigid Extremities exam: Present: normal inspection, full ROM, normal capillary refill. Absent: tenderness, pedal edema, joint swelling, calf tenderness Back exam: Present: normal inspection Neurological exam: Present: alert, oriented X3, CN II-XII intact Psychiatric exam: Present: normal affect, normal mood Skin exam: Present: warm, dry, intact, normal color. Absent: rash Course Vital Signs 07/13/24 07/13/24 07/13/24 14:09 16:00 23:26 Temperature 98.8 F Pulse Rate 80 86 86 Respiratory 19 19 18 Rate Blood Pressure 131/86 110/72 129/90 O2 Sat by Pulse 98 98 99 Oximetry - Reevaluation(s) Reevaluation #1: 07/13/24 14:14 Records reviewed Reevaluation #2: 07/13/24 18:37 Cleared for psychiatric evaluation Reevaluation #3: 07/13/24 18:37 Informed of results questions answered Reevaluation #4: Patient seen eval by psychiatry Reevaluation #5: Differential Mental Health Depression, anxiety, bipolar, psychosis, schizophrenia, borderline personality, situational depression, adjustment disorder, behavioral disorder, brain tumor, malingering, substance abuse, encephalopathy, medication reaction, dementia, hypothyroidism, degenerative neurologic disorder, lupus.... This is not meant to be all-inclusive list Medical Decision Making - Medical Decision Making 74 female who was medically cleared and seen eval by psychiatry to be transferred for inpatient psychiatric evaluation and treatment - Lab Data Result diagrams: 07/13/24 14:35 07/13/24 14:35 Lab Results 07/13/24 07/13/24 07/13/24 Range/Units 14:35 14:35 14:35 WBC 8.3 (3.8-10.6) k/uL RBC 4.36 (3.80-5.40) m/uL Hgb 13.8 (11.4-16.0) gm/dL Hct 40.1 (34.0-46.0) % MCV 92.0 (80.0-100.0) fL MCH 31.7 (25.0-35.0) pg MCHC 34.4 (31.0-37.0) g/dL RDW 13.4 (11.5-15.5) % Plt Count 274 (150-450) k/uL MPV 9.0 Neutrophils % 70 % Lymphocytes % 20 % Monocytes % 7 % Eosinophils % 3 % Basophils % 0 % Neutrophils # 5.8 (1.3-7.7) k/uL Lymphocytes # 1.6 (1.0-4.8) k/uL Monocytes # 0.5 (0-1.0) k/uL Eosinophils # 0.2 (0-0.7) k/uL Basophils # 0.0 (0-0.2) k/uL PT 10.8 (10.0-12.5) sec INR 1.0 (<1.2) APTT 20.4 L (22.0-30.0) sec Sodium (137-145) mmol/L Potassium (3.5-5.1) mmol/L Chloride (98-107) mmol/L Carbon Dioxide (22-30) mmol/L Anion Gap mmol/L BUN (7-17) mg/dL Creatinine (0.52-1.04) mg/dL Est GFR (CKD-EPI)AfAm (>60 ml/min/1.73 sqM) Est GFR (CKD-EPI)NonAf (>60 ml/min/1.73 sqM) Glucose (74-99) mg/dL Calcium (8.4-10.2) mg/dL Total Bilirubin (0.2-1.3) mg/dL AST (14-36) U/L ALT (4-34) U/L Alkaline Phosphatase (38-126) U/L Ammonia (<30) umol/L Troponin I (0.000-0.034) ng/mL Total Protein (6.3-8.2) g/dL Albumin (3.5-5.0) g/dL Urine Color Urine Appearance (Clear) Urine pH (5.0-8.0) Ur Specific [place] (1.001-1.035) Urine Protein (Negative) Urine Glucose (UA) (Negative) Urine Ketones (Negative) Urine Blood (Negative) Urine Nitrite (Negative) Urine Bilirubin (Negative) Urine Urobilinogen (<2.0) mg/dL Ur Leukocyte Esterase (Negative) Urine RBC (0-5) /hpf Urine WBC (0-5) /hpf Ur Squamous Epith Cells (0-4) /hpf Hyaline Casts (0-2) /lpf Urine Mucus (None) /hpf Salicylates mg/dL Urine Opiates Screen Not Detected (NotDetected) Ur Oxycodone Screen Not Detected (NotDetected) Urine Methadone Screen Not Detected (NotDetected) Acetaminophen ug/mL Ur Barbiturates Screen Not Detected (NotDetected) U Tricyclic Antidepress Not Detected (NotDetected) Ur Phencyclidine Scrn Not Detected (NotDetected) Ur Amphetamines Screen Not Detected (NotDetected) U Methamphetamines Scrn Not Detected (NotDetected) U Benzodiazepines Scrn Detected H (NotDetected) Urine Cocaine Screen Not Detected (NotDetected) U Marijuana (THC) Screen Detected H (NotDetected) Serum Alcohol mg/dL SARS-CoV-2 (PCR) (Not Detectd) 07/13/24 07/13/24 07/13/24 Range/Units 14:35 14:35 14:35 WBC (3.8-10.6) k/uL RBC (3.80-5.40) m/uL Hgb (11.4-16.0) gm/dL Hct (34.0-46.0) % MCV (80.0-100.0) fL MCH (25.0-35.0) pg MCHC (31.0-37.0) g/dL RDW (11.5-15.5) % Plt Count (150-450) k/uL MPV Neutrophils % % Lymphocytes % % Monocytes % % Eosinophils % % Basophils % % Neutrophils # (1.3-7.7) k/uL Lymphocytes # (1.0-4.8) k/uL Monocytes # (0-1.0) k/uL Eosinophils # (0-0.7) k/uL Basophils # (0-0.2) k/uL PT (10.0-12.5) sec INR (<1.2) APTT (22.0-30.0) sec Sodium 139 (137-145) mmol/L Potassium 4.4 (3.5-5.1) mmol/L Chloride 105 (98-107) mmol/L Carbon Dioxide 27 (22-30) mmol/L Anion Gap 7 mmol/L BUN 23 H (7-17) mg/dL Creatinine 0.87 (0.52-1.04) mg/dL Est GFR (CKD-EPI)AfAm 75 (>60 ml/min/1.73 sqM) Est GFR (CKD-EPI)NonAf 65 (>60 ml/min/1.73 sqM) Glucose 116 H (74-99) mg/dL Calcium 9.4 (8.4-10.2) mg/dL Total Bilirubin 0.5 (0.2-1.3) mg/dL AST 23 (14-36) U/L ALT 17 (4-34) U/L Alkaline Phosphatase 66 (38-126) U/L Ammonia <9 (<30) umol/L Troponin I <0.012 (0.000-0.034) ng/mL Total Protein 6.8 (6.3-8.2) g/dL Albumin 4.2 (3.5-5.0) g/dL Urine Color Urine Appearance (Clear) Urine pH (5.0-8.0) Ur Specific [place] (1.001-1.035) Urine Protein (Negative) Urine Glucose (UA) (Negative) Urine Ketones (Negative) Urine Blood (Negative) Urine Nitrite (Negative) Urine Bilirubin (Negative) Urine Urobilinogen (<2.0) mg/dL Ur Leukocyte Esterase (Negative) Urine RBC (0-5) /hpf Urine WBC (0-5) /hpf Ur Squamous Epith Cells (0-4) /hpf Hyaline Casts (0-2) /lpf Urine Mucus (None) /hpf Salicylates <1.0 mg/dL Urine Opiates Screen (NotDetected) Ur Oxycodone Screen (NotDetected) Urine Methadone Screen (NotDetected) Acetaminophen <10.0 ug/mL Ur Barbiturates Screen (NotDetected) U Tricyclic Antidepress (NotDetected) Ur Phencyclidine Scrn (NotDetected) Ur Amphetamines Screen (NotDetected) U Methamphetamines Scrn (NotDetected) U Benzodiazepines Scrn (NotDetected) Urine Cocaine Screen (NotDetected) U Marijuana (THC) Screen (NotDetected) Serum Alcohol <10 mg/dL SARS-CoV-2 (PCR) (Not Detectd) 07/13/24 07/13/24 Range/Units 14:35 18:10 WBC (3.8-10.6) k/uL RBC (3.80-5.40) m/uL Hgb (11.4-16.0) gm/dL Hct (34.0-46.0) % MCV (80.0-100.0) fL MCH (25.0-35.0) pg MCHC (31.0-37.0) g/dL RDW (11.5-15.5) % Plt Count (150-450) k/uL MPV Neutrophils % % Lymphocytes % % Monocytes % % Eosinophils % % Basophils % % Neutrophils # (1.3-7.7) k/uL Lymphocytes # (1.0-4.8) k/uL Monocytes # (0-1.0) k/uL Eosinophils # (0-0.7) k/uL Basophils # (0-0.2) k/uL PT (10.0-12.5) sec INR (<1.2) APTT (22.0-30.0) sec Sodium (137-145) mmol/L Potassium (3.5-5.1) mmol/L Chloride (98-107) mmol/L Carbon Dioxide (22-30) mmol/L Anion Gap mmol/L BUN (7-17) mg/dL Creatinine (0.52-1.04) mg/dL Est GFR (CKD-EPI)AfAm (>60 ml/min/1.73 sqM) Est GFR (CKD-EPI)NonAf (>60 ml/min/1.73 sqM) Glucose (74-99) mg/dL Calcium (8.4-10.2) mg/dL Total Bilirubin (0.2-1.3) mg/dL AST (14-36) U/L ALT (4-34) U/L Alkaline Phosphatase (38-126) U/L Ammonia (<30) umol/L Troponin I (0.000-0.034) ng/mL Total Protein (6.3-8.2) g/dL Albumin (3.5-5.0) g/dL Urine Color Yellow Urine Appearance Cloudy H (Clear) Urine pH 5.5 (5.0-8.0) Ur Specific [place] 1.028 (1.001-1.035) Urine Protein Trace H (Negative) Urine Glucose (UA) Negative (Negative) Urine Ketones Negative (Negative) Urine Blood Negative (Negative) Urine Nitrite Negative (Negative) Urine Bilirubin Negative (Negative) Urine Urobilinogen 2.0 (<2.0) mg/dL Ur Leukocyte Esterase Negative (Negative) Urine RBC 1 (0-5) /hpf Urine WBC 1 (0-5) /hpf Ur Squamous Epith Cells 1 (0-4) /hpf Hyaline Casts 1 (0-2) /lpf Urine Mucus Occasional H (None) /hpf Salicylates mg/dL Urine Opiates Screen (NotDetected) Ur Oxycodone Screen (NotDetected) Urine Methadone Screen (NotDetected) Acetaminophen ug/mL Ur Barbiturates Screen (NotDetected) U Tricyclic Antidepress (NotDetected) Ur Phencyclidine Scrn (NotDetected) Ur Amphetamines Screen (NotDetected) U Methamphetamines Scrn (NotDetected) U Benzodiazepines Scrn (NotDetected) Urine Cocaine Screen (NotDetected) U Marijuana (THC) Screen (NotDetected) Serum Alcohol mg/dL SARS-CoV-2 (PCR) Not Detected (Not Detectd) Disposition Clinical Impression: Acute psychosis, Psychosis, Schizoaffective disorder, depressive type, Schizoaffective disorder, bipolar type Disposition: TRANSFER TO PSYCH HOSP/UNIT Condition: Fair Is patient prescribed a controlled substance at d/c from ED?: No Referrals: Héctor Kaplan MD [Primary Care Provider] - 1-2 days
[2024-07-13 14:17] VITALS: TEMP 98.8
[2024-07-13] MEDS: SODIUM CHLORIDE 0.9% 1,000 ML IV ONE (14:46)
[2024-07-13 15:12] LABS: ALT 17 U/L (4-34); AST 23 U/L (14-36); Acetaminophen <10.0 ug/mL; African American GFR (CKD) 75 (>60 ml/min/1.73 sqM); Albumin 4.2 g/dL (3.5-5.0); Alcohol <10 mg/dL; Alkaline Phosphatase 66 U/L (38-126); Anion Gap 7 mmol/L; Blood Urea Nitrogen 23 mg/dL (7-17); Calcium 9.4 mg/dL (8.4-10.2); Carbon Dioxide 27 mmol/L (22-30); Chloride 105 mmol/L (98-107); Glucose 116 mg/dL (74-99); Non-African American GFR(CKD) 65 (>60 ml/min/1.73 sqM); Potassium 4.4 mmol/L (3.5-5.1); Salicylate <1.0 mg/dL; Sodium 139 mmol/L (137-145); Total Bilirubin 0.5 mg/dL (0.2-1.3); Total Protein 6.8 g/dL (6.3-8.2)
[2024-07-13 15:21] LABS: Basophils % (A) 0 %; Eosinophils # (A) 0.2 k/uL (0-0.7); Eosinophils % (A) 3 %; HCT 40.1 % (34.0-46.0); HGB 13.8 gm/dL (11.4-16.0); Lymphocytes # (A) 1.6 k/uL (1.0-4.8); Lymphocytes % (A) 20 %; MCH 31.7 pg (25.0-35.0); MCHC 34.4 g/dL (31.0-37.0); Monocytes # (A) 0.5 k/uL (0-1.0); Monocytes % (A) 7 %; Neutrophils # (A) 5.8 k/uL (1.3-7.7); Neutrophils % (A) 70 %; Platelet Count 274 k/uL (150-450); RBC 4.36 m/uL (3.80-5.40); RDW 13.4 % (11.5-15.5); WBC 8.3 k/uL (3.8-10.6)
[2024-07-13 15:32] LABS: Prothrombin Time 10.8 sec (10.0-12.5)
[2024-07-13 15:53] LABS: Partial Thromboplastin Time 20.4 sec (22.0-30.0)
[2024-07-13 16:08] VITALS: PULSE 86
[2024-07-13 16:17] LABS: Appearance,Urine Cloudy (Clear); Bilirubin,Urine Negative (Negative); Blood,Urine Negative (Negative); Color,Urine Yellow; Glucose,Urine (UA) Negative (Negative); Hyaline Casts,Urine 1 /lpf (0-2); Ketones,Urine Negative (Negative); Leukocyte Esterase,Urine Negative (Negative); Mucus,Urine Occasional /hpf; Nitrite,Urine Negative (Negative); PH, Urine 5.5 (5.0-8.0); Protein,Urine Trace (Negative); RBC,Urine 1 /hpf (0-5); Specific Gravity,Urine 1.028 (1.001-1.035); Squamous Epithelial Cell,Urine 1 /hpf (0-4); WBC,Urine 1 /hpf (0-5)
[2024-07-13 16:26] LABS: Amphetamine Screen,Urine Not Detected (NotDetected); Barbiturate Screen,Urine Not Detected (NotDetected); Benzodiazepines Screen,Urine Detected (NotDetected); Cocaine Screen,Urine Not Detected (NotDetected); Methadone Screen, Urine Not Detected (NotDetected); Opiate Screen,Urine Not Detected (NotDetected); Oxycodone Screen, Urine Not Detected (NotDetected); Phencyclidine Screen,Urine Not Detected (NotDetected); Tricyclic Antidepressant,Urine Not Detected (NotDetected); Urn Cannabinoid Scrn Detected (NotDetected)
[2024-07-13] MEDS: ACETAMINOPHEN TAB 500 MG TAB PO STA (23:22)
[2024-07-13 23:27] VITALS: BP 129/90; RESP 18
== END 2024-07-14 01:29 ==
LOC: EC 14:05
DX: F25.1 Schizoaffective disorder, depressive type (principal); F25.0 Schizoaffective disorder, bipolar type; F29 Unspecified psychosis not due to a substance or known physiological condition; Z11.52 Encounter for screening for COVID-19; Z88.5 Allergy status to narcotic agent; Z88.6 Allergy status to analgesic agent; Z88.8 Allergy status to other drugs, medicaments and biological substances; Z91.041 Radiographic dye allergy status; Z88.1 Allergy status to other antibiotic agents
CPT/HCPCS: 36415; 80053; 80143; 80179; 80306; 80320; 81001; 82140; 84484; 85025; 85610; 85730; 87635; 96360; 96361; 99285

== ENCOUNTER → 2025-02-08 | Outpatient (CLI) | payer OTHER ==
--- NOTE | 2025-02-08 14:40 | US ---
EXAMINATION TYPE: US abdomen limited DATE OF EXAM: 02/08/2025 COMPARISON: NONE CLINICAL INDICATION: Female, 74 years old with history of R10.10 ABD PAIN; Pain x 4 months. Hx cholec ystectomy. TECHNIQUE: Grayscale and color Doppler imaging of the right upper quadrant. FINDINGS: EXAM MEASUREMENTS: Liver Length: 15.8 cm Gallbladder: Surgically absent CBD: 0.88 cm, color Doppler imaging was utilized to isolate the common bile duct for measurement. Right Kidney: 10.2 x 3.9 x 3.8 cm TURF MANAGER NOTES: Exam is very limited due to gas and pt body habitus. Pancreas: Mostly obscured. Only small segment of the pancreatic neck is seen. Liver: *Coarsened appearance suspected to be a technical basis. No focal lesion identified. Gallbladder: Surgically absent Evidence for sonographic Zamudio's sign: No CBD: Mildly dilated. Right Kidney: No hydronephrosis or masses seen IMPRESSION: 1. Mildly dilated bile duct at 8.8 mm, likely due to postcholecystectomy status. Correlate with alkal ine phosphatase and bilirubin levels. 2. Overall limited exam due to bowel gas and body habitus. [facility], , 02/08/2025 2:38 PM
== END | disposition home or self-care (01) ==
LOC: RADUSWWP 09:16
PROVIDERS: ATTEND Internal Medicine Hospice and Palliative Medicine
DX: K83.8 Other specified diseases of biliary tract (principal); Z90.49 Acquired absence of other specified parts of digestive tract
CPT/HCPCS: 76705